=== PATIENT | male | born 1940 | race Caucasian/White ===

== ENCOUNTER 2016-12-25 14:21 | Outpatient (CLI) | payer MEDICARE, OTHER | END 2016-12-25 14:22 | disposition home or self-care (01) | DX: J43.9 Emphysema, unspecified (principal) ==

== ENCOUNTER 2016-12-28 08:54 | Outpatient (CLI) | payer MEDICARE, OTHER ==
[2016-12-28] MEDS ORDERED: ALBUTEROL NEB 2.5 MG/3 ML INH ONE (09:37)
== END 2016-12-28 08:55 | disposition home or self-care (01) ==
DX: J44.9 Chronic obstructive pulmonary disease, unspecified (principal); Z77.090 Contact with and (suspected) exposure to asbestos
CPT/HCPCS: 94060; J7613

== ENCOUNTER 2017-01-28 14:52 | Outpatient (CLI) | payer MEDICARE, OTHER | END 2017-01-28 14:53 | DX: J44.9 Chronic obstructive pulmonary disease, unspecified (principal) ==

== ENCOUNTER 2017-04-03 16:29 | Outpatient (CLI) | payer MEDICARE, OTHER | END 2017-04-03 16:30 | disposition home or self-care (01) | LOC: LAB.R 16:29 | PROVIDERS: ATTEND Internal Medicine | DX: M25.572 Pain in left ankle and joints of left foot (principal) | CPT/HCPCS: 84550 ==

== ENCOUNTER 2017-04-18 10:14 | Day surgery (SDC) | payer MEDICARE, OTHER ==
[2017-04-18] MEDS ORDERED: PHENYLEPHRINE 2.5% OPHTH 2 ML DROPS ONE (10:20)
[2017-04-18] MEDS ORDERED: PROPARACAINE 0.5% OPHTH DROPS 15 ML OPTH ONE ×2 (10:48→12:05)
[2017-04-18] MEDS ORDERED: CYCLOPENTOLATE 1% OPHTH DROPS 2 ML OPTH ONE (10:48)
[2017-04-18] MEDS ORDERED: KETOROLAC 0.45% OPHTH DROPS OPTH ONE (10:48)
[2017-04-18] MEDS ORDERED: PHENYLEPHRINE 2.5% OPHTH 2 ML DROPS OPTH ONE (10:48)
[2017-04-18] MEDS ORDERED: LACTATED RINGERS 500 ML IV ONE (10:58)
[2017-04-18] MEDS ORDERED: EPINEPHrine 1 MG/ML AMP IVP ONE (12:05)
[2017-04-18] MEDS ORDERED: TIMOLOL 0.5% OPHTH DROPS OPTH ONE (12:05)
[2017-04-18] MEDS ORDERED: CHONDR SULF/HYALURONATE SYRINGE IO ONE (12:05)
[2017-04-18] MEDS ORDERED: BRIMONIDINE 0.2% OPHTH DROPS 5 ML OPTH ONE (12:05)
[2017-04-18] MEDS ORDERED: TRIAMCIN/MOXIFLOX/VANCO 1 ML VIAL IO ONE ×2 (12:06)
[2017-04-18] MEDS ORDERED: BSS/LIDOCAINE/EPINEPHRINE 1 ML SYRINGE IO ONE ×2 (12:06)
[2017-04-18] MEDS ORDERED: MIDAZOLAM 2 MG/2 ML VIAL IVP ONE (12:10)
[2017-04-18 12:57] VITALS: BP 120/45
--- NOTE | 2017-04-18 14:28 | OPERATIVE REPORT ---
DATE OF SURGERY: 04/18/2017 00:00:00 PREOPERATIVE DIAGNOSIS: Visually significant cataract, right eye. This is his first cataract surgery. POSTOPERATIVE DIAGNOSIS: Visually significant cataract, right eye. This is his first cataract surgery. NAME OF PROCEDURE: Phacoemulsification with posterior chamber intraocular lens implant, right eye. SURGEON: Wili Treviño MD ANESTHESIA: Monitored anesthesia care. COMPLICATIONS: None. OPERATIVE INDICATIONS: This is a 76-year-old man with progressive vision loss in the right eye due to 2-3+ nuclear and 1+ cortical cataract. Best corrected visual acuity was 20/30 with glare to 20/50 in the right eye. Indications for surgery were overall decrease in vision, difficulty seeing words on the computer screen, difficulty reading, difficulty seeing words, closed captions or game scores on TV, difficulty driving in low light or at night, difficulty driving at night because of headlights from other vehicles, and difficulty with glare or bright lights in any situation. He was consented at length concerning the risks and benefits of cataract surgery after which he expressed a desire to proceed with surgery. OPERATIVE PROCEDURE: The patient was taken into OR #2 and placed under monitored anesthesia care. A surgical time-out was conducted confirming correct patient, correct procedure and correct surgical site. He was placed under the LenSx laser and his eye docked to the laser interface. The laser performed the capsulotomy, lens softening, phaco wounds, and arcuate keratotomy incisions. He was then moved to the operating microscope, given topical anesthesia, and then prepped and draped in the usual sterile fashion. The eye was entered at the 12 and 9 o'clock positions. Intracameral Shugarcaine was injected into the anterior chamber, followed by Viscoat. The capsulorrhexis flap created by the LenSx laser was removed from the anterior chamber. The nucleus was hydrodissected and phacoemulsified. The cortex was evacuated using automated infusion and aspiration. Provisc was injected into the capsular bag and a 22.5 diopter toric intraocular lens was inserted into the bag and rotated to axis 013. Approximately 0.8 mL of a mixture of triamcinolone, moxifloxacin, and vancomycin was injected subconjunctivally in the superior quadrant for inflammation and infection prophylaxis. I/A was used to evacuate the viscoelastic materials. The eye was inflated to physiologic pressure using balanced salt solution and found to be water tight. The eye was again checked to make sure that the toric markers were in the desired position of 013, as they were. The patient was taken from the operating room in good condition and given postoperative instructions. JOB #: [id number] EXT JOB #:[id number] MTDD
== END 2017-04-18 10:15 | disposition home or self-care (01) ==
LOC: SDS 10:14
PROVIDERS: ATTEND Ophthalmology
PROC: 08RJ3JZ Replacement of Right Lens with Synthetic Substitute, Percutaneous Approach (ICD-10-PCS; principal; 2017-04-18 10:30)
DX: H25.811 Combined forms of age-related cataract, right eye (principal); F17.210 Nicotine dependence, cigarettes, uncomplicated; J44.9 Chronic obstructive pulmonary disease, unspecified; I10 Essential (primary) hypertension; Z82.49 Family history of ischemic heart disease and other diseases of the circulatory system; Z82.61 Family history of arthritis; Z88.5 Allergy status to narcotic agent; Z96.653 Presence of artificial knee joint, bilateral; Z96.641 Presence of right artificial hip joint; Z96.612 Presence of left artificial shoulder joint; Z96.611 Presence of right artificial shoulder joint; Z79.82 Long term (current) use of aspirin
CPT/HCPCS: 66984; A9270; V2632

== ENCOUNTER 2017-07-24 08:00 | Outpatient (CLI) | payer MEDICARE, OTHER ==
[2017-07-24 19:56] LABS: ALBUMIN/GLOBULIN RATIO 1.5 (1.0-2.2); BILIRUBIN,TOTAL 0.5 mg/dL (0.2-1.0); CALCIUM 9.9 mg/dL (8.5-10.3); CREATININE 0.7 mg/dL (0.6-1.2); POTASSIUM 3.9 mmol/L (3.5-5.0); TOTAL PROTEIN 7.1 g/dL (6.7-8.2)
[2017-07-25 16:57] LABS: FERRITIN 69.4 ng/mL (23.9-336.2)
== END 2017-07-24 08:01 | disposition home or self-care (01) ==
LOC: LAB.R 08:00
PROVIDERS: ATTEND Nurse Practitioner Primary Care
DX: G47.62 Sleep related leg cramps (principal); E11.65 Type 2 diabetes mellitus with hyperglycemia
CPT/HCPCS: 80053; 82607; 82728

== ENCOUNTER 2017-09-28 13:25 | Outpatient (CLI) | payer MEDICARE, OTHER ==
[~2017-09-28 13:25] MED LIST: ALBUTEROL NEB 2.5 MG/3 ML INH ONE
--- NOTE | 2017-09-28 19:31 | XRAY Report ---
EXAM: CHEST RADIOGRAPHY EXAM DATE: 09/28/2017 02:03 PM. CLINICAL HISTORY: COPD. COMPARISON: 12/25/2016. TECHNIQUE: 2 views. FINDINGS: Lungs/Pleura: No focal opacities evident. No pleural effusion. No pneumothorax. Pulmonary hyperinflat ion redemonstrated.. Mediastinum: Heart and mediastinal contours are unremarkable. Other: Bilateral shoulder arthroplasties partially redemonstrated. IMPRESSION: 1. No acute abnormality. 2. Pulmonary hyperinflation, without change. [facility] Referring Provider Line: [phone] SITE ID: [id number]
== END 2017-09-28 13:26 | disposition home or self-care (01) ==
LOC: RT 13:25
PROVIDERS: ATTEND Internal Medicine
DX: J44.9 Chronic obstructive pulmonary disease, unspecified (principal)
CPT/HCPCS: 71020; 94010

== ENCOUNTER 2018-03-07 09:23 | Outpatient (CLI) | payer MEDICARE, OTHER ==
--- NOTE | 2018-03-07 12:02 | XRAY Report ---
TWO-VIEW CHEST: 03/07/2018 COMPARISON: Two view chest 09/28/2017. INDICATION: Fever. TECHNIQUE REPORT: Two views. FINDINGS: There is flattening of the diaphragms. There is mild stable bibasilar scar. No focal consolidation. No pneumothorax or pleural effusion. Mediastinum unremarkable. Bilateral shoulder prostheses are noted. IMPRESSION: COPD. NO EVIDENCE OF ACUTE THORACIC PROCESS. TD: 03/07/2018 12:01 [facility]
== END 2018-03-07 09:24 | disposition home or self-care (01) ==
LOC: DI 09:23
PROVIDERS: ATTEND Internal Medicine
DX: R50.9 Fever, unspecified (principal); J44.9 Chronic obstructive pulmonary disease, unspecified
CPT/HCPCS: 71046

== ENCOUNTER 2018-05-28 11:18 | Outpatient (CLI) | payer MEDICARE, OTHER ==
[2018-05-28 14:13] LABS: BILIRUBIN,URINE NEGATIVE (NEGATIVE); GLUCOSE, URINE (UA) NEGATIVE (NEGATIVE); KETONES,URINE (UA) NEGATIVE (NEGATIVE); LEUKOCYTE ESTERASE, URINE NEGATIVE (NEGATIVE); NITRITE,URINE NEGATIVE (NEGATIVE); OCCULT BLOOD,URINE NEGATIVE (NEGATIVE); PROTEIN,URINE NEGATIVE (NEGATIVE); UROBILINOGEN,URINE 0.2 (NORMAL) E.U./dL (NORMAL)
[2018-05-28 14:22] LABS: CLARITY,URINE CLEAR (CLEAR)
== END 2018-05-28 11:19 | disposition home or self-care (01) ==
LOC: LAB.R 11:18
PROVIDERS: ATTEND Nurse Practitioner Primary Care
DX: R35.0 Frequency of micturition (principal)
CPT/HCPCS: 81001; 81003; 84153; 87086

== ENCOUNTER 2018-09-17 09:11 | Outpatient (CLI) | payer MEDICARE, OTHER ==
[2018-09-17 09:36] LABS: BASOPHILS % (AUTO) 0.4 %; EOSINOPHILS # (AUTO) 0.2 10^3/uL (0.0-0.7); EOSINOPHILS % (AUTO) 2.7 %; HGB - HEMOGLOBIN 13.9 g/dL (14.0-18.0); LYMPHOCYTES # (AUTO) 1.5 10^3/uL (1.5-3.5); LYMPHOCYTES % (AUTO) 17.9 %; MEAN CORPUSCULAR HEMOGLOBIN 31.2 pg (27.0-31.0); MEAN CORPUSCULAR HGB CONC 34.1 g/dL (32.0-36.0); MEAN CORPUSCULAR VOLUME 91.4 fL (80.0-94.0); MEAN PLATELET VOLUME 7.1 fL (7.4-11.4); MONOCYTES % (AUTO) 11.7 %; NEUTROPHILS # (AUTO) 5.7 10^3/uL (1.5-6.6); NEUTROPHILS % (AUTO) 67.3 %; PLT - PLATELET COUNT 230 10^3/uL (130-450); RED BLOOD COUNT 4.47 10^6/uL (4.70-6.10); RED CELL DISTRIBUTION WIDTH 13.7 % (12.0-15.0); WHITE BLOOD COUNT 8.5 x10^3/uL (4.8-10.8)
[2018-09-17 09:51] LABS: ALBUMIN 4.1 g/dL (3.2-5.5); ALBUMIN/GLOBULIN RATIO 1.4 (1.0-2.2); BILIRUBIN,TOTAL 0.7 mg/dL (0.2-1.0); CALCIUM 9.3 mg/dL (8.5-10.3); CREATININE 0.9 mg/dL (0.6-1.2)
== END 2018-09-17 09:12 | disposition home or self-care (01) ==
LOC: LAB.R 09:11
PROVIDERS: ATTEND Internal Medicine
DX: K57.92 Diverticulitis of intestine, part unspecified, without perforation or abscess without bleeding (principal)
CPT/HCPCS: 80053; 85025

== ENCOUNTER 2018-09-17 09:41 | Outpatient (CLI) | payer MEDICARE, OTHER ==
[2018-09-17] MEDS ORDERED: IOVERSOL 320 100 ML VIAL IVP ONE ×2 (09:44→13:22)
[2018-09-17] MEDS ORDERED: IOVERSOL 320 50 ML VIAL ONE (09:44)
--- NOTE | 2018-09-17 12:15 | CT Report ---
Reason: DIVERTICULITIS Procedure Date: 09/17/2018 Accession Number: [id number] / [id number] Procedure: CT - Abdomen/Pelvis W/ CPT Code: FULL RESULT: EXAM: CT ABDOMEN AND PELVIS EXAM DATE: 09/17/2018 11:28 AM. CLINICAL HISTORY: DIVERTICULITIS. COMPARISONS: None. TECHNIQUE: Routine helical CT imaging was performed through the abdomen and pelvis. IV contrast: ISOVUE 300 100mL. Enteric contrast: Yes. Reconstructions: Coronal and sagittal. In accordance with CT protocol optimization, one or more of the following dose reduction techniques were utilized for this exam: automated exposure control, adjustment of mA and/or KV based on patient size, or use of iterative reconstructive technique. FINDINGS: Lung Bases: Linear changes are noted in the lung bases that most likely represent atelectasis or scarring. Solid organs: The liver is without evidence of an enhancing mass. There is a gallstone within the gallbladder. There is no evidence of intrahepatic biliary duct dilatation. The spleen, pancreas, and adrenal glands are normal in appearance. The kidneys are without evidence of a mass or hydronephrosis. Peritoneal Cavity/Bowel: Diverticuli are seen involving the descending and sigmoid colon. Fat stranding is noted adjacent to the descending colon. A lesion is seen along the descending colonic wall. It measures approximately 1.4 x 2.3 cm (image 49 of series 3). This may represent a mass or inflammatory changes. Pelvic Organs: No mass or cyst is seen within the pelvis. Vasculature: There is atherosclerosis of the aorta and its branches, including the coronary arteries. Bones: There are postoperative changes consistent with a right hip arthroplasty. There is scoliosis of the lumbar spine convex to the left. Other: None. IMPRESSION: Lesion of the descending colon that may represent inflammatory changes from diverticulitis or a primary colon cancer. Recommend nonemergent GI consult for further evaluation. Diverticulosis of the descending and sigmoid colon. Cholelithiasis without evidence of obstruction. Atherosclerosis of the aorta and its branches, including the coronary arteries. [facility]
[2018-09-17] MEDS ORDERED: IOVERSOL 320 50 ML VIAL PO ONE (13:22)
== END 2018-09-17 09:42 | disposition home or self-care (01) ==
LOC: DI 09:41
PROVIDERS: ATTEND Internal Medicine
DX: K57.92 Diverticulitis of intestine, part unspecified, without perforation or abscess without bleeding (principal); K57.30 Diverticulosis of large intestine without perforation or abscess without bleeding; K80.20 Calculus of gallbladder without cholecystitis without obstruction; I70.0 Atherosclerosis of aorta; I25.10 Atherosclerotic heart disease of native coronary artery without angina pectoris
CPT/HCPCS: 74177; Q9967

== ENCOUNTER 2018-11-01 17:25 | Outpatient (CLI) | payer MEDICARE, OTHER | END 2018-11-01 17:26 | disposition critical access hospital (66) | LOC: EMS 17:25 | PROVIDERS: ATTEND Surgery | DX: R06.02 Shortness of breath (principal) | CPT/HCPCS: A0425; A0427 ==

== ENCOUNTER 2018-11-01 17:38 | Observation (INO) | payer MEDICARE, OTHER ==
[2018-11-01 18:00] LABS: BASOPHILS # (AUTO) 0.1 10^3/uL (0.0-0.1); BASOPHILS % (AUTO) 0.8 %; EOSINOPHILS # (AUTO) 0.4 10^3/uL (0.0-0.7); EOSINOPHILS % (AUTO) 5.8 %; HGB - HEMOGLOBIN 14.7 g/dL (14.0-18.0); LYMPHOCYTES # (AUTO) 1.5 10^3/uL (1.5-3.5); LYMPHOCYTES % (AUTO) 19.8 %; MEAN CORPUSCULAR HEMOGLOBIN 30.9 pg (27.0-31.0); MEAN CORPUSCULAR HGB CONC 33.4 g/dL (32.0-36.0); MEAN CORPUSCULAR VOLUME 92.5 fL (80.0-94.0); MEAN PLATELET VOLUME 7.4 fL (7.4-11.4); MONOCYTES # (AUTO) 0.9 10^3/uL (0.0-1.0); MONOCYTES % (AUTO) 11.6 %; NEUTROPHILS # (AUTO) 4.7 10^3/uL (1.5-6.6); PLT - PLATELET COUNT 232 10^3/uL (130-450); RED BLOOD COUNT 4.75 10^6/uL (4.70-6.10); RED CELL DISTRIBUTION WIDTH 13.6 % (12.0-15.0); WHITE BLOOD COUNT 7.6 x10^3/uL (4.8-10.8)
[2018-11-01] MEDS ORDERED: methylPREDNISolone SUCCINATE 125 MG/2 ML VIAL IVP STA (18:04)
[2018-11-01] MEDS ORDERED: IPRATROPIUM/ALBUTEROL 3 ML NEB INH STA (18:04)
--- NOTE | 2018-11-01 18:06 | ED Physician Documentation ---
PD HPI DYSPNEA - Stated complaint Stated Complaint: SOA - Chief complaint Chief Complaint: Resp - History obtained from History obtained from: Patient - History of Present Illness Timing - onset: Other (77-year-old gentleman with severe COPD quit smoking 3 months ago. For the last 4 days he has had shortness of breath especially on exertion without chest pain or pedal edema. No significant cough. His albuterol has been unhelpful.) Review of Systems Unable to obtain: Uncooperative Constitutional: denies: Fever, Chills Cardiac: denies: Chest pain / pressure, Palpitations, Pedal edema, Calf pain Respiratory: reports: Dyspnea. denies: Cough, Hemoptysis, Wheezing PD PAST MEDICAL HISTORY - Past Medical History Past Medical History: Yes Cardiovascular: Hypertension Respiratory: COPD, Emphysema Endocrine/Autoimmune: None GI: None : Frequency HEENT: Chronic hearing loss, Other Psych: None Musculoskeletal: Gout Derm: None - Past Surgical History Past Surgical History: Yes Ortho: Hip replacement, Knee replacement, Shoulder arthroplasty - Present Medications Home Medications: Ambulatory Orders Medication Instructions Recorded Confirmed Albuterol 1 inh INH Q4HR PRN 04/18/17 04/18/17 Aspirin [Adult Low Dose Aspirin EC] 1 tab PO DAILY 04/18/17 04/18/17 Budesonide/Formoterol Fumarate 2 puffs INH BID 04/18/17 04/18/17 [Symbicort 160-4.5 Mcg Inhaler] LORazepam [Lorazepam] 1 tab PO DAILY PRN 04/18/17 04/18/17 Lisinopril 1 tab PO DAILY 04/18/17 04/18/17 Multivitamin [Multivitamins] 1 tab PO DAILY 04/18/17 04/18/17 PARoxetine HCl [Paroxetine HCl] 1 tab PO DAILY 04/18/17 04/18/17 Pravastatin Sodium 1 tab PO DAILY 04/18/17 04/18/17 Sildenafil Citrate [Viagra] 0.5 tab PO DAILY 04/18/17 04/18/17 Tamsulosin HCl [Flomax] 1 tab PO DAILY 04/18/17 04/18/17 Tiopronin 18 mcg INH BID 04/18/17 04/18/17 diltiaZEM [Cardizem] 240 mg PO DAILY 04/18/17 04/18/17 - Allergies Allergies/Adverse Reactions: Allergies Allergy/AdvReac Type Severity Reaction Status Date / Time oxycodone [Oxycodone] Allergy Intermediate Respiratory Verified 11/01/18 17:44 - Social History Does the pt smoke?: No Smoking Status: Never smoker Does the pt drink ETOH?: No Does the pt have substance abuse?: No - Immunizations Immunizations are current?: Yes PD ED PE NORMAL - Vitals Vital signs reviewed: Yes - General General: Alert and oriented X 3, Other (Labored pursed lipped breathing but speaking in full albeit short sentences.) - HEENT HEENT: PERRL, EOMI - Neck Neck: Supple, no meningeal sign, No bony TTP - Cardiac Cardiac: RRR, No murmur - Respiratory Respiratory: Other (Mild respiratory distress, tight and wheezy throughout) - Abdomen Abdomen: Soft, Non tender - Back Back: No CVA TTP, No spinal TTP - Extremities Extremities: No edema, No calf tenderness / cord - Neuro Neuro: Alert and oriented X 3, Normal speech - Psych Psych: Normal mood, Normal affect Results - Vitals Vitals: Vital Signs - 24 hr 11/01/18 11/01/18 11/01/18 17:41 18:10 19:08 Temperature 36.3 C L Heart Rate 118 H 108 H 106 H Respiratory 32 H 23 22 Rate Blood Pressure 175/96 H O2 Saturation 95 Oxygen O2 Source Room air - EKG (time done) 1757 Rate: Rate (enter#) (113) Rhythm: Sinus tachycardia, LAE [place]: Normal QRS: Normal Ischemia: Normal ST segments Computer interpretation: Agree with computer - Labs Labs: Laboratory Tests 11/01/18 11/01/18 11/01/18 17:50 17:50 17:50 WBC 7.6 RBC 4.75 Hgb 14.7 Hct 43.9 MCV 92.5 MCH 30.9 MCHC 33.4 RDW 13.6 Plt Count 232 MPV 7.4 Neut # (Auto) 4.7 Lymph # (Auto) 1.5 [place] # (Auto) 0.9 Eos # (Auto) 0.4 Baso # (Auto) 0.1 Absolute Nucleated RBC 0.01 Nucleated RBC % 0.1 PT 11.4 INR 1.0 Sodium 138 Potassium 4.0 Chloride 101 Carbon Dioxide 26 Anion Gap 11.0 BUN 17 Creatinine 0.9 Estimated GFR (MDRD) 82 L Glucose 128 H Calcium 9.2 Total Bilirubin 0.4 AST 29 ALT 18 Alkaline Phosphatase 82 Troponin I Total Protein 7.8 Albumin 4.3 Globulin 3.5 Albumin/Globulin Ratio 1.2 Lipase 33 11/01/18 17:50 WBC RBC Hgb Hct MCV MCH MCHC RDW Plt Count MPV Neut # (Auto) Lymph # (Auto) [place] # (Auto) Eos # (Auto) Baso # (Auto) Absolute Nucleated RBC Nucleated RBC % PT INR Sodium Potassium Chloride Carbon Dioxide Anion Gap BUN Creatinine Estimated GFR (MDRD) Glucose Calcium Total Bilirubin AST ALT Alkaline Phosphatase Troponin I < 0.04 Total Protein Albumin Globulin Albumin/Globulin Ratio Lipase - Rads (name of study) 1v chest Radiology: EMP read contemporaneously (NAD) PD MEDICAL DECISION MAKING - ED course ED course: 77-year-old gentleman with COPD presents sick with exacerbation of same. He was administered nebs in the department with some improvement but still tachypneic and labored. Also remained tachycardic. Spoke with Dr. Kennedy for admission at 7:15 PM. Departure - Departure Disposition: ED Place in Observation Clinical Impression: Severe chronic obstructive pulmonary disease Condition: Serious
[2018-11-01 18:13] LABS: PT - PROTHROMBIN TIME 11.4 secs (9.9-12.6)
[2018-11-01 18:15] LABS: ALBUMIN 4.3 g/dL (3.2-5.5); ALBUMIN/GLOBULIN RATIO 1.2 (1.0-2.2); BILIRUBIN,TOTAL 0.4 mg/dL (0.2-1.0); CALCIUM 9.2 mg/dL (8.5-10.3); CREATININE 0.9 mg/dL (0.6-1.2); TOTAL PROTEIN 7.8 g/dL (6.7-8.2)
--- NOTE | 2018-11-01 18:26 | XRAY Report ---
Reason: dyspnea Procedure Date: 11/01/2018 Accession Number: [id number] / [id number] Procedure: XR - Chest 1 View X-Ray CPT Code: 40211 FULL RESULT: EXAM: CHEST RADIOGRAPHY EXAM DATE: 11/01/2018 06:08 PM. CLINICAL HISTORY: Dyspnea. COMPARISON: CHEST 2 VIEW 03/07/2018 9:26 AM. TECHNIQUE: 1 view. FINDINGS: Heart size is normal. Calcified plaques in the thoracic aorta. No consolidation, pleural effusion, or pneumothorax. Diffuse prominence of the pulmonary interstitium, which may be related to chronic lung disease. Bilateral shoulder arthroplasties partially visualized. IMPRESSION: No acute cardiopulmonary findings. [facility]
[2018-11-01] MEDS ORDERED: ALBUTEROL NEB 2.5 MG/3 ML INH STA (18:32)
[2018-11-01] MEDS ORDERED: cefTRIAXone 1 GM in SODIUM CHLORIDE 0.9% MINIBAG 100 ML IV STA (19:14)
[2018-11-01] MEDS ORDERED: AZITHROMYCIN INJ 500 MG in SODIUM CHLORIDE 0.9% 250 ML IV STA (19:14)
[2018-11-01] MEDS ORDERED: LEVALBUTEROL 1.25 MG/3 ML NEB INH STA (19:30)
[2018-11-01] MEDS ORDERED: LORAZEPAM PO PRN (19:33)
[2018-11-01] MEDS ORDERED: hydrALAZINE INJ 20 MG/ML VIAL IVP PRN (19:35)
[2018-11-01] MEDS ORDERED: ZOLPIDEM 5 MG TABLET PO PRN (19:37)
[2018-11-01] MEDS ORDERED: ACETAMINOPHEN 325 MG TABLET PO PRN (19:37)
[2018-11-01] MEDS ORDERED: MONTELUKAST 10 MG TABLET PO SCH (21:00)
[2018-11-01] MEDS ORDERED: FAMOTIDINE 20 MG TABLET PO SCH (21:00)
[2018-11-01] MEDS: methylPREDNISolone SUCCINATE 40 MG/ML VIAL IVP SCH (21:29)
[2018-11-01] MEDS: SODIUM CHLORIDE FLUSH 0.9% 10 ML SYRINGE IVP SCH (21:30)
[2018-11-01] MEDS: IPRATROPIUM/ALBUTEROL 3 ML NEB INH SCH (22:13)
[2018-11-01] MEDS: SODIUM CHLORIDE FLUSH 0.9% 10 ML SYRINGE IVP PRN (23:45)
--- NOTE | 2018-11-01 23:45 | HISTORY & PHYSICAL EXAMINATION ---
Chief Complaint - Chief Complaint Chief Complaint: SOB with wheezing History of Present Illness - Admitted From Admitted From:: ED - History Obtained From Records Reviewed: yes History obtained from: patient Exam Limitations: none - History of Present Illness HPI Comment/Other: 77-year-old gentleman with severe COPD quit smoking 3 months ago. For the last 4 days he has had shortness of breath especially on exertion without chest pain or pedal edema. No significant cough. His albuterol has been unhelpful. On exam patient was tachypneic at 32 RR, tachycardic, was having faint bibasilar wheezing. BP elevated 175/96, ECG ST at 113 bpm, labs wnl, trop x 1 neg, 95% RA, patient wanted to go home. History - Past Medical History Cardiovascular: reports: Hypertension Respiratory: reports: COPD, Emphysema Endocrine/Autoimmune: reports: None GI: reports: None : reports: Frequency HEENT: reports: Chronic hearing loss, Other Psych: reports: None Musculoskeletal: reports: Gout Derm: reports: None MRSA Hx?: No - Past Surgical History Ortho: reports: Hip replacement, Knee replacement, Shoulder arthroplasty Meds/Allgy - Home Medications Home Medications: Ambulatory Orders Medication Instructions Recorded Confirmed Albuterol 1 puffs INH Q4HR PRN 04/18/17 11/02/18 Aspirin [Adult Low Dose Aspirin EC] 81 mg PO DAILY 04/18/17 11/02/18 Budesonide/Formoterol Fumarate 2 puffs INH BID 04/18/17 11/01/18 [Symbicort 160-4.5 Mcg Inhaler] LORazepam [Lorazepam] 1 mg PO DAILY PRN 04/18/17 11/02/18 Lisinopril 20 mg PO DAILY 04/18/17 11/02/18 Pravastatin Sodium 80 mg PO DAILY 04/18/17 11/02/18 Tamsulosin HCl [Flomax] 0.4 mg PO DAILY 04/18/17 11/02/18 Finasteride [Proscar] 5 mg PO DAILY 11/01/18 11/02/18 Magnesium 250 mg PO DAILY PM 11/01/18 11/01/18 Tiotropium [place] [Spiriva] 1 puffs INH DAILY 11/01/18 11/02/18 - Allergies Allergies/Adverse Reactions: Allergies Allergy/AdvReac Type Severity Reaction Status Date / Time oxycodone [Oxycodone] Allergy Intermediate Respiratory Verified 11/01/18 17:44 Review of Systems - Constitutional Constitutional: denies: Fatigue, Fever - Eyes Eyes: denies: Vision loss - Ears, Nose & Throat Ears, Nose & Throat: denies: Tinnitus, Vertigo - Cardiovascular Cariovascular: denies: Irregular heart rate, Palpitations, Chest pain, Edema - Respiratory Respiratory: reports: Wheezing, SOB at rest, SOB with exertion. denies: Cough, Sputum production - Gastrointestinal Gastrointestinal: denies: Abdominal pain, Abdominal distention, Diarrhea - Genitourinary Genitourinary: denies: Dysuria, Frequency, Urgency - Musculoskeletal Musculoskeletal: denies: Muscle pain, Back pain, Muscle aches - Integumentary Integumentary: denies: Rash, Pruritis, Lesions - Neurological Neurological: denies: General weakness, Focal weakness, Headache, Memory problems - Psychiatric Psychiatric: denies: Depression, Anxiety, Hallucinations - Endocrine Endocrine: denies: Polyuria, Polydypsia - Hematologic/Lymphatic Hematologic/Lymphatic: denies: Anemia, Bruising, Blood clots, Lymphadenopathy - All Other Systems All Other Systems: reports: Reviewed and negative Prior Level of Functionality: Patient is ambulatory Exam - Vital Signs Vital Signs: Vital Signs x48h Temp Pulse Pulse Resp BP BP Pulse Ox 11/01/18 22:10 110 H 24 11/01/18 20:00 36.6 C 114 H 24 167/97 H 94 11/01/18 19:58 100 22 11/01/18 19:52 36.9 C 99 28 H 146/82 H 93 11/01/18 19:08 106 H 22 11/01/18 18:10 108 H 23 11/01/18 17:41 36.3 C L 118 H 32 H 175/96 H 95 - Physical Exam General Appearance: positive: Mild distress Eyes Bilateral: positive: Normal inspection, PERRL, EOMI ENT: positive: ENT inspection nml, Pharynx nml, No signs of dehydration Neck: positive: Nml inspection, Thyroid nml, No JVD, Trachea midline. negative: Thyromegaly Respiratory: positive: Chest non-tender, Wheezes (faint), Rhonchi Cardiovascular: positive: Regular rate & rhythm, No murmur. negative: Irregularly irregular Abdomen: positive: Non-tender, No organomegaly, No distention Back: positive: Nml inspection Skin: positive: Color nml, No rash, Warm Extremities: positive: Nml appearance Neurologic/Psychiatric: positive: Oriented x3, CN's nml (2-12) Conclusion/Plan - Problem List (1) COPD with emphysema Conclusion/Plan: Would initiate IV steroids, nebs, pulmicort, pulm toilet, spirometry, IV abx with rocephin/azithro, duonebs, o2 tx. Resp viral panel, strept neg/mycoplasma IgM Qualifiers: Emphysema type: unspecified Qualified Code(s): J43.9 - Emphysema, unspecified (2) HTN (hypertension), malignant Conclusion/Plan: restart home meds (3) Advance care planning Conclusion/Plan: Patient is a DNR and was adamant on not wanting aggressive medical care. Goals of care, symptoms mgmt, and disease trajectory were discussed. - Lab Results Lab results reviewed: Yes Fish Bones: 11/01/18 17:50 11/01/18 17:50 - Diagnostic Imaging Results Diagnostic Imaging Results: positive: Final report reviewed - EKG Results EKG Interpreted Independently: Yes Core Measures - Anticipated LOS I expect patient to be DC'd or transferred within 96 hours.: Yes - DVT/VTE - Prophylaxis VTE/DVT Device ordered at admit?: No Not Ordered - Medical Reason: Not indicated VTE/DVT Prophylaxis med ordered at admit?: Yes - Stroke - Rehab Assessment Rehab services assessment to be ordered?: No - AMI - Statin at Admit Aspirin Prescribed on Admit: Yes
[2018-11-02] MEDS: SODIUM CHLORIDE FLUSH 0.9% 10 ML SYRINGE IVP SCH (01:21)
[2018-11-02] MEDS ORDERED: AZITHROMYCIN INJ 500 MG in SODIUM CHLORIDE 0.9% 250 ML IV SCH ×2 (01:30→20:00)
[2018-11-02] MEDS ORDERED: cefTRIAXone 1 GM in SODIUM CHLORIDE 0.9% MINIBAG 100 ML IV SCH ×2 (01:30→19:30)
[2018-11-02] MEDS: SODIUM CHLORIDE FLUSH 0.9% 10 ML SYRINGE IVP PRN (07:00)
[2018-11-02] MEDS ORDERED: BUDESONIDE 0.5 MG/2 ML NEB INH SCH (07:00)
[2018-11-02] MEDS: methylPREDNISolone SUCCINATE 40 MG/ML VIAL IVP SCH (07:01)
[2018-11-02] MEDS: IPRATROPIUM/ALBUTEROL 3 ML NEB INH SCH (07:06)
[2018-11-02 07:51] VITALS: BP 134/93
[2018-11-02] MEDS ORDERED: POLYETHYLENE GLYCOL 3350 17 GM PACKET PO SCH (09:00)
[2018-11-02] MEDS ORDERED: diltiaZEM CD 240 MG CAPSULE PO SCH (09:00)
[2018-11-02] MEDS ORDERED: TIOTROPIUM BROMIDE INH SCH (09:00)
[2018-11-02] MEDS ORDERED: PAROXETINE HCL PO SCH (09:00)
[2018-11-02] MEDS ORDERED: ENOXAPARIN 40 MG/0.4 ML SYRINGE SUBQ SCH (09:00)
[2018-11-02] MEDS ORDERED: PRAVASTATIN SODIUM PO SCH (09:00)
[2018-11-02] MEDS ORDERED: MULTIVITAMIN TABLET PO SCH (09:00)
[2018-11-02] MEDS ORDERED: ASPIRIN EC 81 MG TABLET PO SCH (09:00)
[2018-11-02] MEDS ORDERED: FINASTERIDE 5 MG TABLET PO SCH (09:00)
[2018-11-02] MEDS ORDERED: LISINOPRIL 20 MG TABLET PO SCH (09:00)
[2018-11-02] MEDS ORDERED: TAMSULOSIN 0.4 MG CAPSULE PO SCH (09:00)
[2018-11-02] MEDS ORDERED: ASPIRIN CHEW 81 MG TABLET PO SCH (09:00)
--- NOTE | 2018-11-02 11:47 | DISCHARGE SUMMARY ---
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 HTN (hypertension), malignant (I10) chronic, stable. SOB (shortness of breath) (R06.02) ongoing, would not stay to evaluate for home oxygen, refused home oxygen if he were to qualify. Advanced care planning/counseling discussion (Z71.89) discussion with admitting provider, DNR. BPH (benign prostatic hyperplasia) (N40.0) chronic, continue meds. Hyperlipidemia (E78.5) chronic, continue meds. Medical non-compliance (Z91.19) chronic, patient left AMA. - HPI History of Present Illness: Jamin Beyer is a 77-year-old male with severe COPD and quit smoking 3 months ago. For the last 4 days he has had shortness of breath especially on exertion without chest pain or pedal edema. No significant cough. His albuterol has been unhelpful. On exam patient was tachypneic at 32 RR, tachycardic, was having faint bibasilar wheezing. BP elevated 175/96, ECG ST at 113 bpm, labs wnl, trop x 1 neg, 95% RA, patient wanted to go home. - HOSPITAL COURSE Hospital Course: The patient was reluctant to continue treatment for his COPD exacerbation and around 0700AM became more agitated and insisted on leaving against medical advice. He was profoundly TELIDA and refused any further treatment. He was told about ongoing treatment and the importance of tapering steroids and antibiotics that should continue, but still refused treatment. He was compliant in signing the appropriate AMA forms. He was taken to the lobby of the front entrance and called a cab to return home. - ALLERGIES Allergies/Adverse Reactions: Allergies Allergy/AdvReac Type Severity Reaction Status Date / Time oxycodone [Oxycodone] Allergy Intermediate Respiratory Verified 11/01/18 17:44 - MEDICATIONS Home Medications: Ambulatory Orders Medication Instructions Recorded Confirmed Albuterol 1 puffs INH Q4HR PRN 04/18/17 11/02/18 Aspirin [Adult Low Dose Aspirin EC] 81 mg PO DAILY 04/18/17 11/02/18 Budesonide/Formoterol Fumarate 2 puffs INH BID 04/18/17 11/01/18 [Symbicort 160-4.5 Mcg Inhaler] LORazepam [Lorazepam] 1 mg PO DAILY PRN 04/18/17 11/02/18 Lisinopril 20 mg PO DAILY 04/18/17 11/02/18 Pravastatin Sodium 80 mg PO DAILY 04/18/17 11/02/18 Tamsulosin HCl [Flomax] 0.4 mg PO DAILY 04/18/17 11/02/18 Finasteride [Proscar] 5 mg PO DAILY 11/01/18 11/02/18 Magnesium 250 mg PO DAILY PM 11/01/18 11/01/18 Tiotropium [place] [Spiriva] 1 puffs INH DAILY 11/01/18 11/02/18 - PHYSICAL EXAM AT DISCHARGE General Appearance: positive: Alert, Moderate distress, Anxious Eyes Bilateral: positive: PERRL ENT: positive: No signs of dehydration Neck: positive: No JVD Respiratory: positive: Wheezes, Rhonchi Cardiovascular: positive: Tachycardia, Systolic murmur Peripheral Pulses: positive: 2+ Abdomen: positive: Non-tender, Nml bowel sounds Back: positive: Nml inspection Skin: positive: No rash, Warm, Dry Extremities: positive: Non-tender, Pedal edema Neurologic/Psychiatric: positive: Oriented x3, CN's nml (2-12), Motor nml, Sensation nml, Depressed mood/affect, Other (agitation apparent) Reflexes: Bicep (R): 3+, Bicep (L): 3+ - LABS Result Diagrams: 11/01/18 17:50 11/01/18 17:50 - FOLLOW UP Follow Up: Follow up with PCP, or seek medical attention if needed. - TIME SPENT Time Spent in Discharge (Minutes): 45
[2018-11-05 16:01] LABS: MYCOPLASMA PNEUMONIAE IGG 2.04
== END 2018-11-02 07:55 | disposition left against medical advice (07) ==
LOC: EDUNIT# → ED 17:38 → MS2 19:37
PROVIDERS: ADMIT Family Medicine; ATTEND Nurse Practitioner
DX: J43.9 Emphysema, unspecified (principal); I10 Essential (primary) hypertension; N40.0 Benign prostatic hyperplasia without lower urinary tract symptoms; E78.5 Hyperlipidemia, unspecified; Z53.20 Procedure and treatment not carried out because of patient's decision for unspecified reasons; Z66 Do not resuscitate; Z91.19 Patient's noncompliance with other medical treatment and regimen; Z87.891 Personal history of nicotine dependence; Z71.89 Other specified counseling
CPT/HCPCS: 36415; 71045; 80053; 83690; 84484; 85025; 85610; 86738; 87070; 87205; 87430; 93005; 94640; 96365; 96367; 96375; 96376; 99284; A9270; G0378; J7626; 96374; 99283

== ENCOUNTER 2019-05-19 09:16 | Emergency (ER) | payer MEDICARE, OTHER ==
--- NOTE | 2019-05-19 09:29 | ED Physician Documentation ---
History of Present Illness - Stated complaint Stated Complaint: SOA - History obtained from History obtained from: Patient - History of Present Illness Timing: How many days ago (several) Pain level max: 0 Pain level now: 0 Improved by: rest Worsened by: exertion - Additonal information Additional information: states increased work of breathing over the past few days. no fevers. no chills. + cough, yellow sputum. no chest pain. no palpitations. Review of Systems Ten Systems: 10 systems reviewed and negative Constitutional: denies: Fever, Chills Throat: denies: Sore throat Cardiac: denies: Chest pain / pressure Respiratory: reports: Dyspnea, Cough, Wheezing GI: denies: Nausea, Vomiting, Diarrhea Skin: denies: Rash Musculoskeletal: denies: Neck pain, Back pain Neurologic: denies: Headache PD PAST MEDICAL HISTORY - Past Medical History Past Medical History: Yes Cardiovascular: Hypertension Respiratory: COPD, Emphysema Endocrine/Autoimmune: None GI: None : Frequency HEENT: Chronic hearing loss, Other Psych: None Musculoskeletal: Gout Derm: None - Past Surgical History Past Surgical History: Yes Ortho: Hip replacement, Knee replacement, Shoulder arthroplasty - Present Medications Home Medications: Ambulatory Orders Medication Instructions Recorded Confirmed Albuterol 1 puffs INH Q4HR PRN 04/18/17 11/02/18 Aspirin [Adult Low Dose Aspirin EC] 81 mg PO DAILY 04/18/17 11/02/18 Budesonide/Formoterol Fumarate 2 puffs INH BID 04/18/17 11/01/18 [Symbicort 160-4.5 Mcg Inhaler] LORazepam [Lorazepam] 1 mg PO DAILY PRN 04/18/17 11/02/18 Lisinopril 20 mg PO DAILY 04/18/17 11/02/18 Pravastatin Sodium 80 mg PO DAILY 04/18/17 11/02/18 Tamsulosin HCl [Flomax] 0.4 mg PO DAILY 04/18/17 11/02/18 Finasteride [Proscar] 5 mg PO DAILY 11/01/18 11/02/18 Magnesium 250 mg PO DAILY PM 11/01/18 11/01/18 Tiotropium [place] [Spiriva] 1 puffs INH DAILY 11/01/18 11/02/18 Benzonatate [Tessalon Perle] 100 - 200 mg PO TID PRN #30 capsule 05/19/19 predniSONE [Deltasone] 10 mg PO [id number] #42 tab 05/19/19 - Allergies Allergies/Adverse Reactions: Allergies Allergy/AdvReac Type Severity Reaction Status Date / Time oxycodone [Oxycodone] Allergy Intermediate Respiratory Verified 11/01/18 17:44 - Social History Does the pt smoke?: No Smoking Status: Former smoker Does the pt drink ETOH?: No Does the pt have substance abuse?: No - Immunizations Immunizations are current?: Yes PD ED PE NORMAL - Vitals Vital signs reviewed: Yes - General General: Alert and oriented X 3, No acute distress, Well developed/nourished - HEENT HEENT: PERRL, Moist mucous membranes - Neck Neck: Supple, no meningeal sign - Cardiac Cardiac: RRR, Strong equal pulses - Respiratory Respiratory: No respiratory distress, Other (wheezing B) - Abdomen Abdomen: Soft, Non tender, Non distended - Derm Derm: Warm and dry - Extremities Extremities: No edema - Neuro Neuro: Alert and oriented X 3 - Psych Psych: Normal mood, Normal affect Results - Vitals Vitals: Vital Signs - 24 hr 05/19/19 05/19/19 05/19/19 09:52 11:25 11:47 Temperature 36.3 C L Heart Rate 94 84 85 Respiratory 25 H 20 21 Rate Blood Pressure 171/83 H 161/82 H O2 Saturation 98 99 Oxygen O2 Source Room air - EKG (time done) 0924 Rate: Rate (enter#) (93) Rhythm: NSR [place]: Normal Intervals: Normal NV QRS: Normal Ischemia: Normal ST segments - Labs Labs: Laboratory Tests 05/19/19 05/19/19 09:42 09:42 WBC 7.4 RBC 5.04 Hgb 15.5 Hct 47.3 MCV 93.8 MCH 30.8 MCHC 32.8 RDW 13.2 Plt Count 252 MPV 9.2 Neut # (Auto) 5.3 Lymph # (Auto) 1.2 L [place] # (Auto) 0.7 Eos # (Auto) 0.2 Baso # (Auto) 0.0 Absolute Nucleated RBC 0.00 Nucleated RBC % 0.0 Sodium 141 Potassium 4.1 Chloride 101 Carbon Dioxide 26 Anion Gap 14.0 H BUN 21 H Creatinine 0.9 Estimated GFR (MDRD) 82 L Glucose 109 H Calcium 9.6 Total Bilirubin 1.2 H AST 24 ALT 19 Alkaline Phosphatase 55 Total Protein 7.5 Albumin 4.5 Globulin 3.0 Albumin/Globulin Ratio 1.5 Lipase 58 H - Rads (name of study) cxr Radiology: Prelim report reviewed, EMP read contemporaneously, See rad report (No acute disease or interval change. ) PD MEDICAL DECISION MAKING - ED course Complexity details: reviewed results, re-evaluated patient, considered differential, d/w patient ED course: 78-year-old male presents to the emergency department with a COPD flare. Will place on steroids. No hypoxia. Feels better after steroids and nebulizer treatment. He is well-appearing, nontoxic. Afebrile. No indication for antibiotics at this time. Patient counseled regarding signs and symptoms for which I believe and urgent re-evaluation would be necessary. Patient with good understanding of and agreement to plan and is comfortable going home at this time This document was made in part using voice recognition software. While efforts are made to proofread this document, sound alike and grammatical errors may occur. Departure - Departure Disposition: 01 Home, Self Care Clinical Impression: COPD with emphysema Qualifiers: Emphysema type: unspecified Qualified Code(s): J43.9 - Emphysema, unspecified Condition: Good Instructions: ED COPD Flare Follow-Up: Juve Delgado MD [Primary Care Provider] - Within 1 week Prescriptions: Benzonatate [Tessalon Perle] 100 - 200 mg PO TID PRN #30 capsule PRN Reason: Cough predniSONE [Deltasone] 10 mg PO [id number] #42 tab Comments: Use the steroids as prescribed. Return if you worsen. There is no pneumonia on your chest x-ray today. Follow-up with your doctor for further care. Discharge Date/Time: 05/19/19 12:04
[2019-05-19] MEDS ORDERED: predniSONE 20 MG TABLET PO STA (09:40)
[2019-05-19 10:12] LABS: BASOPHILS % (AUTO) 0.5 %; EOSINOPHILS # (AUTO) 0.2 10^3/uL (0.0-0.7); EOSINOPHILS % (AUTO) 2.7 %; HGB - HEMOGLOBIN 15.5 g/dL (14.0-18.0); LYMPHOCYTES # (AUTO) 1.2 10^3/uL (1.5-3.5); LYMPHOCYTES % (AUTO) 15.9 %; MEAN CORPUSCULAR HEMOGLOBIN 30.8 pg (27.0-31.0); MEAN CORPUSCULAR HGB CONC 32.8 g/dL (32.0-36.0); MEAN CORPUSCULAR VOLUME 93.8 fL (80.0-94.0); MEAN PLATELET VOLUME 9.2 fL (7.4-11.4); MONOCYTES # (AUTO) 0.7 10^3/uL (0.0-1.0); MONOCYTES % (AUTO) 9.8 %; NEUTROPHILS # (AUTO) 5.3 10^3/uL (1.5-6.6); NEUTROPHILS % (AUTO) 70.6 %; PLT - PLATELET COUNT 252 10^3/uL (130-450); RED BLOOD COUNT 5.04 10^6/uL (4.70-6.10); RED CELL DISTRIBUTION WIDTH 13.2 % (12.0-15.0); WHITE BLOOD COUNT 7.4 x10^3/uL (4.8-10.8)
[2019-05-19] MEDS ORDERED: IPRATROPIUM/ALBUTEROL 3 ML NEB INH STA (10:28)
[2019-05-19 10:31] LABS: ALBUMIN 4.5 g/dL (3.2-5.5); ALBUMIN/GLOBULIN RATIO 1.5 (1.0-2.2); BILIRUBIN,TOTAL 1.2 mg/dL (0.2-1.0); CALCIUM 9.6 mg/dL (8.5-10.3); CREATININE 0.9 mg/dL (0.6-1.2); TOTAL PROTEIN 7.5 g/dL (6.7-8.2)
--- NOTE | 2019-05-19 10:35 | XRAY Report ---
Reason: dyspnea Procedure Date: 05/19/2019 Accession Number: [id number] / [id number] Procedure: XR - Chest 1 View X-Ray CPT Code: 75688 FULL RESULT: EXAM: CHEST RADIOGRAPHY EXAM DATE: 05/19/2019 10:16 AM. CLINICAL HISTORY: Dyspnea. COMPARISON: CHEST 1 VIEW 11/01/2018 5:58 PM. TECHNIQUE: 1 view. FINDINGS: Lungs/Pleura: No focal opacities evident. No pleural effusion. No pneumothorax. Mediastinum: Within exam limitations, the cardiomediastinal contour is normal. Other: Bilateral shoulder hemiarthroplasties are partially visualized as before. IMPRESSION: No acute disease or interval change. RADIA
[2019-05-19 11:47] VITALS: BP 161/82
== END 2019-05-19 12:04 | disposition home or self-care (01) ==
LOC: ED 09:16
DX: J43.9 Emphysema, unspecified (principal); I10 Essential (primary) hypertension; Z87.891 Personal history of nicotine dependence
CPT/HCPCS: 36415; 71045; 80053; 83690; 85025; 93005; 94640; 99284; J7512

== ENCOUNTER 2019-05-20 08:49 | Outpatient (CLI) | payer MEDICARE, OTHER | END 2019-05-20 08:50 | disposition EMS.NT | LOC: EMS 08:49 | PROVIDERS: ATTEND Surgery | DX: R06.00 Dyspnea, unspecified (principal) ==

== ENCOUNTER 2020-01-25 16:25 | Outpatient (CLI) | payer MEDICARE, OTHER ==
--- NOTE | 2020-01-26 03:15 | XRAY Report ---
Reason: L SHOULDER PX, CERVICALGIA Procedure Date: 01/25/2020 Accession Number: [id number] / [id number] Procedure: XR - Cervical Spine Complete CPT Code: Final Report FULL RESULT: EXAM: CERVICAL SPINE RADIOGRAPHY EXAM DATE: 01/25/2020 04:56 PM. CLINICAL HISTORY: Left shoulder pain and neck pain. COMPARISONS: None. TECHNIQUE: 5 views. FINDINGS: The exam is limited by the inability to evaluate the spinal alignment given the inability to see below the level of the C6 vertebral body and by the inability to adequately evaluate the dens. An irregularity at the base of the dens is suggested on the lateral radiograph. Multilevel facet arthropathy is seen. The bones are osteopenic. Vascular calcifications are seen in the soft tissues. IMPRESSION: Inadequate evaluation of the cervical spine to exclude traumatic injury. Suggestion of irregularity in the dens, which may represent a nondisplaced fracture. Recommend CT cervical spine for further evaluation. RADIA The call report notification system was initiated by Dr. Flor Mloina at 03:13 AM on 01/26/2020.
== END 2020-01-25 16:26 | disposition home or self-care (01) ==
LOC: DI 16:25
PROVIDERS: ATTEND Family Medicine
DX: M47.812 Spondylosis without myelopathy or radiculopathy, cervical region (principal); M25.512 Pain in left shoulder
CPT/HCPCS: 72050

== ENCOUNTER 2020-02-05 12:25 | Outpatient (CLI) | payer OTHER, MEDICARE ==
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
== END 2020-02-05 12:26 | disposition home or self-care (01) ==
LOC: DI 12:25
PROVIDERS: ATTEND Nurse Practitioner
DX: S12.121A Other nondisplaced dens fracture, initial encounter for closed fracture (principal); M47.812 Spondylosis without myelopathy or radiculopathy, cervical region; M50.323 Other cervical disc degeneration at C6-C7 level; M48.02 Spinal stenosis, cervical region
CPT/HCPCS: 72125

== ENCOUNTER 2020-02-05 13:38 | Emergency (ER) | payer OTHER, MEDICARE ==
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
[2020-02-05 15:30] VITALS: BP 135/100
== END 2020-02-05 15:38 | disposition home or self-care (01) ==
LOC: ED 13:38
DX: S12.121A Other nondisplaced dens fracture, initial encounter for closed fracture (principal); S16.1XXA Strain of muscle, fascia and tendon at neck level, initial encounter; V53.5XXA Driver of pick-up truck or van injured in collision with car, pick-up truck or van in traffic accident, initial encounter; Y93.89 Activity, other specified; Y92.410 Unspecified street and highway as the place of occurrence of the external cause; I10 Essential (primary) hypertension; Z87.891 Personal history of nicotine dependence; M47.812 Spondylosis without myelopathy or radiculopathy, cervical region; M50.323 Other cervical disc degeneration at C6-C7 level; M48.02 Spinal stenosis, cervical region
CPT/HCPCS: 72125; 99282; 99283

== ENCOUNTER 2020-03-03 06:34 | Emergency (ER) | payer MEDICARE, OTHER ==
[2020-03-03 06:48] VITALS: BP 98/63
== END 2020-03-03 08:27 | disposition left against medical advice (07) ==
LOC: ED 06:34
DX: Z53.21 Procedure and treatment not carried out due to patient leaving prior to being seen by health care provider (principal)

== ENCOUNTER 2020-04-05 13:32 | Emergency (ER) | payer MEDICARE, OTHER ==
--- NOTE | 2020-04-05 13:50 | ED Physician Documentation ---
PD HPI DYSPNEA - Stated complaint Stated Complaint: SOA/COUGH - Chief complaint Chief Complaint: Resp - History obtained from History obtained from: Patient - History of Present Illness Timing - onset: How many days ago (5) Timing - onset during: Light activity Timing - duration: Days (5) Timing - details: Gradual onset, Still present, Still present in ED Inciting event(s): URI Improved by: O2, Inhaler/neb, Steroids, Rest Worsened by: Exertion, Coughing Associated symptoms: Cough, Wheezing Similar symptoms before: Diagnosis (COPD) Recently seen: Not recently seen Review of Systems Constitutional: denies: Fever Eyes: denies: Decreased vision Ears: denies: Ear pain Nose: reports: Congestion Throat: denies: Sore throat Cardiac: denies: Chest pain / pressure, Palpitations Respiratory: reports: Dyspnea, Cough, Wheezing GI: denies: Abdominal Pain, Nausea, Vomiting : denies: Dysuria, Frequency PD PAST MEDICAL HISTORY - Past Medical History Cardiovascular: Hypertension Respiratory: COPD, Emphysema Endocrine/Autoimmune: None GI: None : Frequency HEENT: Chronic hearing loss, Other Psych: None Musculoskeletal: Gout Derm: None - Past Surgical History Past Surgical History: Yes Ortho: Hip replacement, Knee replacement, Shoulder arthroplasty - Present Medications Home Medications: Ambulatory Orders Medication Instructions Recorded Confirmed Albuterol 1 puffs INH Q4HR PRN 04/18/17 11/02/18 Aspirin [Adult Low Dose Aspirin EC] 81 mg PO DAILY 04/18/17 11/02/18 Budesonide/Formoterol Fumarate 2 puffs INH BID 04/18/17 11/01/18 [Symbicort 160-4.5 Mcg Inhaler] LORazepam [Lorazepam] 1 mg PO DAILY PRN 04/18/17 11/02/18 Pravastatin Sodium 80 mg PO DAILY 04/18/17 11/02/18 Tamsulosin HCl [Flomax] 0.4 mg PO DAILY 04/18/17 11/02/18 lisinopriL [Lisinopril] 20 mg PO DAILY 04/18/17 11/02/18 Finasteride [Proscar] 5 mg PO DAILY 11/01/18 11/02/18 Magnesium 250 mg PO DAILY PM 11/01/18 11/01/18 Tiotropium [place] [Spiriva] 1 puffs INH DAILY 11/01/18 11/02/18 Benzonatate [Tessalon Perle] 100 - 200 mg PO TID PRN #30 capsule 05/19/19 predniSONE [Deltasone] 10 mg PO [id number] #42 tab 05/19/19 Naproxen 375 mg PO BID #20 tablet 02/05/20 Tizanidine HCl 4 mg PO TID PRN #25 capsule 02/05/20 Azithromycin [Zithromax] 250 mg PO DAILY #6 tablet 04/05/20 predniSONE [Deltasone] 10 mg PO ONCE #26 tablet 04/05/20 - Allergies Allergies/Adverse Reactions: Allergies Allergy/AdvReac Type Severity Reaction Status Date / Time oxycodone [Oxycodone] Allergy Intermediate Respiratory Verified 02/05/20 13:47 - Social History Does the pt smoke?: No Smoking Status: Never smoker Does the pt drink ETOH?: No Does the pt have substance abuse?: No - Immunizations Immunizations are current?: Yes PD ED PE NORMAL - Vitals Vital signs reviewed: Yes (tachypneic at rest) - General General: Alert and oriented X 3, Well developed/nourished, Other (tachypneic at rest ) - HEENT HEENT: Atraumatic, PERRL, EOMI, Other (dry mucous membranes ) - Neck Neck: Supple, no meningeal sign, No bony TTP - Cardiac Cardiac: RRR, No murmur - Respiratory Respiratory: Other (tachypneic with diminished breath sounds and course rhonchi mid lung field right. 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, No motor deficit, No sensory deficit, Normal speech Eye Opening: Spontaneous Motor: Obeys Commands Verbal: Oriented GCS Score: 15 - Psych Psych: Normal mood, Normal affect Results - Vitals Vitals: Vital Signs - 24 hr 04/05/20 04/05/20 04/05/20 13:39 13:41 14:21 Temperature 36.9 C Heart Rate 92 93 87 Respiratory 26 H 18 18 Rate Blood Pressure 150/60 H 139/70 H O2 Saturation 95 95 Oxygen O2 Source Room air - Labs Labs: Laboratory Tests 04/05/20 04/05/2004/05/20 14:19 14:19 14:19 WBC 6.6 RBC 4.42 L Hgb 13.8 L Hct 41.9 L MCV 94.8 H MCH 31.2 H MCHC 32.9 RDW 12.7 Plt Count 215 MPV 8.6 Neut # (Auto) 4.4 Lymph # (Auto) 1.3 L [place] # (Auto) 0.7 Eos # (Auto) 0.2 Baso # (Auto) 0.0 Absolute Nucleated RBC 0.00 Nucleated RBC % 0.0 Sodium 139 Potassium 3.9 Chloride 105 Carbon Dioxide 26 Anion Gap 8.0 BUN 27 H Creatinine 0.9 Estimated GFR (MDRD) 82 L Glucose 152 H Calcium 9.2 Total Bilirubin 0.4 AST 20 ALT 14 Alkaline Phosphatase 62 B-Natriuretic Peptide 35 Total Protein 7.1 Albumin 4.4 Globulin 2.7 Albumin/Globulin Ratio 1.6 Lipase 33 PD MEDICAL DECISION MAKING - ED course Complexity details: reviewed old records, reviewed results, re-evaluated patient, considered differential, d/w patient ED course: 79-year-old male with a history of COPD has developed cough increased shortness of breath without fever. He does not have pneumonia on his chest x-ray. Here in the emergency department he is administered a DuoNeb treatment and 125 mg of Solu-Medrol. The Solu-Medrol given by push gives the patient a stomachache for a brief period of time. The patient has improvement with the DuoNeb treatment and we will place him on a course of prednisone and azithromycin. Departure - Departure Disposition: 01 Home, Self Care Clinical Impression: COPD exacerbation Condition: Stable Instructions: ED COPD Flare Follow-Up: Juve Delgado MD [Primary Care Provider] - Prescriptions: Azithromycin [Zithromax] 250 mg PO DAILY #6 tablet predniSONE [Deltasone] 10 mg PO ONCE #26 tablet
[2020-04-05] MEDS: IPRATROPIUM/ALBUTEROL 3 ML NEB INH STA (14:20)
[2020-04-05 14:23] LABS: BASOPHILS % (AUTO) 0.5 %; EOSINOPHILS # (AUTO) 0.2 10^3/uL (0.0-0.7); EOSINOPHILS % (AUTO) 3.2 %; HGB - HEMOGLOBIN 13.8 g/dL (14.0-18.0); LYMPHOCYTES # (AUTO) 1.3 10^3/uL (1.5-3.5); LYMPHOCYTES % (AUTO) 19.5 %; MEAN CORPUSCULAR HEMOGLOBIN 31.2 pg (27.0-31.0); MEAN CORPUSCULAR HGB CONC 32.9 g/dL (32.0-36.0); MEAN CORPUSCULAR VOLUME 94.8 fL (80.0-94.0); MEAN PLATELET VOLUME 8.6 fL (7.4-11.4); MONOCYTES # (AUTO) 0.7 10^3/uL (0.0-1.0); MONOCYTES % (AUTO) 10.4 %; NEUTROPHILS # (AUTO) 4.4 10^3/uL (1.5-6.6); NEUTROPHILS % (AUTO) 66.1 %; PLT - PLATELET COUNT 215 10^3/uL (130-450); RED BLOOD COUNT 4.42 10^6/uL (4.70-6.10); RED CELL DISTRIBUTION WIDTH 12.7 % (12.0-15.0); WHITE BLOOD COUNT 6.6 x10^3/uL (4.8-10.8)
--- NOTE | 2020-04-05 14:36 | XRAY Report ---
Reason: soa Procedure Date: 04/05/2020 Accession Number: [id number] / [id number] Procedure: XR - Chest 1 View X-Ray CPT Code: 34263 Final Report FULL RESULT: PROCEDURE: Chest 1 View X-Ray INDICATIONS: soa TECHNIQUE: One view of the chest was acquired. COMPARISON: 05/19/2019 FINDINGS: Surgical changes and devices: None. Lungs and pleura: No pleural effusions or pneumothorax. Lungs are clear. Mediastinum: Mediastinal contours appear normal. Heart size is normal. Bones and chest wall: Bilateral shoulder arthroplasties. No suspicious bony lesions. Overlying soft tissues appear unremarkable. IMPRESSION: No acute cardiopulmonary disease process. Reviewed by: Julianna Hunter MD, PhD on 04/05/2020 2:35 PM PDT Approved by: Julianna Hunter MD, PhD on 04/05/2020 2:35 PM PDT Station ID: [id number]
[2020-04-05 14:42] LABS: ALBUMIN 4.4 g/dL (3.2-5.5); ALBUMIN/GLOBULIN RATIO 1.6 (1.0-2.2); BILIRUBIN,TOTAL 0.4 mg/dL (0.2-1.0); CALCIUM 9.2 mg/dL (8.5-10.3); CREATININE 0.9 mg/dL (0.6-1.2); TOTAL PROTEIN 7.1 g/dL (6.7-8.2)
[2020-04-05] MEDS: methylPREDNISolone SUCCINATE 125 MG/2 ML VIAL IVP STA (14:57)
[2020-04-05 15:56] VITALS: BP 136/88
== END 2020-04-05 15:56 | disposition home or self-care (01) ==
LOC: ED 13:32
DX: J44.1 Chronic obstructive pulmonary disease with (acute) exacerbation (principal); I10 Essential (primary) hypertension; Z79.82 Long term (current) use of aspirin
CPT/HCPCS: 36415; 71045; 80053; 83690; 83880; 85025; 94640; 96374; 99284

== ENCOUNTER 2020-05-02 14:56 | Outpatient (CLI) | payer MEDICARE, OTHER | END 2020-05-02 14:57 | disposition EMS.NT | LOC: EMS 14:56 | PROVIDERS: ATTEND Surgery | DX: T22.192A Burn of first degree of multiple sites of left shoulder and upper limb, except wrist and hand, initial encounter (principal); T22.191A Burn of first degree of multiple sites of right shoulder and upper limb, except wrist and hand, initial encounter; W40.1XXA Explosion of explosive gases, initial encounter; Y92.019 Unspecified place in single-family (private) house as the place of occurrence of the external cause ==

== ENCOUNTER 2020-10-07 15:18 | Emergency (ER) | payer MEDICARE, OTHER ==
--- NOTE | 2020-10-07 16:07 | ED Physician Documentation ---
History of Present Illness - Stated complaint Stated Complaint: RIGHT FOOT PAIN - Chief complaint Chief Complaint: Ext Problem - History obtained from History obtained from: Patient - History of Present Illness Timing: How many weeks ago (2) Pain level max: 5 Pain level now: 2 - Additonal information Additional information: Patient is a 79-year-old male who presents to the emergency department with right foot pain. This is been ongoing for the past 2 weeks. Worse with walking, better with rest. States he was recently diagnosed with sciatica and started on prednisone. Does not recall any injuries. Worse with walking, better with rest. States that the pain is mostly in the posterior calf and heel. Feels like the leg is swollen. Review of Systems Constitutional: denies: Fever, Chills Respiratory: denies: Dyspnea GI: denies: Nausea, Vomiting Skin: denies: Rash Musculoskeletal: denies: Neck pain, Back pain Neurologic: denies: Headache PD PAST MEDICAL HISTORY - Past Medical History Cardiovascular: Hypertension Respiratory: COPD, Emphysema Neuro: None Endocrine/Autoimmune: None GI: None : Frequency HEENT: Chronic hearing loss, Other Psych: None Musculoskeletal: Gout Derm: None - Past Surgical History Past Surgical History: Yes Ortho: Hip replacement, Knee replacement, Shoulder arthroplasty - Present Medications Home Medications: Ambulatory Orders Medication Instructions Recorded Confirmed Albuterol 1 puffs INH Q4HR PRN 04/18/17 11/02/18 Aspirin [Adult Low Dose Aspirin EC] 81 mg PO DAILY 04/18/17 11/02/18 Budesonide/Formoterol Fumarate 2 puffs INH BID 04/18/17 11/01/18 [Symbicort 160-4.5 Mcg Inhaler] LORazepam [Lorazepam] 1 mg PO DAILY PRN 04/18/17 11/02/18 Pravastatin Sodium 80 mg PO DAILY 04/18/17 11/02/18 Tamsulosin HCl [Flomax] 0.4 mg PO DAILY 04/18/17 11/02/18 lisinopriL [Lisinopril] 20 mg PO DAILY 04/18/17 11/02/18 Finasteride [Proscar] 5 mg PO DAILY 11/01/18 11/02/18 Magnesium 250 mg PO DAILY PM 11/01/18 11/01/18 Tiotropium [place] [Spiriva] 1 puffs INH DAILY 11/01/18 11/02/18 Benzonatate [Tessalon Perle] 100 - 200 mg PO TID PRN #30 capsule 05/19/19 predniSONE [Deltasone] 10 mg PO [id number] #42 tab 05/19/19 Naproxen 375 mg PO BID #20 tablet 02/05/20 Tizanidine HCl 4 mg PO TID PRN #25 capsule 02/05/20 Azithromycin [Zithromax] 250 mg PO DAILY #6 tablet 04/05/20 predniSONE [Deltasone] 10 mg PO ONCE #26 tablet 04/05/20 - Allergies Allergies/Adverse Reactions: Allergies Allergy/AdvReac Type Severity Reaction Status Date / Time oxycodone [Oxycodone] Allergy Intermediate Respiratory Verified 02/05/20 13:47 - Social History Does the pt smoke?: No Smoking Status: Never smoker Does the pt drink ETOH?: No Does the pt have substance abuse?: No - Immunizations Immunizations are current?: Yes PD ED PE NORMAL - Vitals Vital signs reviewed: Yes - General General: Alert and oriented X 3, No acute distress - HEENT HEENT: Moist mucous membranes - Neck Neck: Supple, no meningeal sign - Cardiac Cardiac: RRR - Respiratory Respiratory: No respiratory distress, Clear bilaterally - Derm Derm: Warm and dry - Extremities Extremities: Other (Minimal swelling to the dorsum of the right foot. No bony tenderness over the foot. Does have some posterior calf tenderness. Minimal swelling. No redness. Neurovascularly intact. diminshed pulses B DP and PT) - Neuro Neuro: Alert and oriented X 3 - Psych Psych: Normal mood, Normal affect Results - Vitals Vitals: Vital Signs - 24 hr 10/07/20 10/07/20 15:24 17:18 Temperature 35.8 C L 36.8 C Heart Rate 91 60 Respiratory 20 19 Rate Blood Pressure 158/92 H 149/89 H O2 Saturation 97 100 Oxygen O2 Source Room air - Rads (name of study) Duplex ultrasound right lower extremity Radiology: Prelim report reviewed, EMP read contemporaneously, See rad report (No DVT in the right lower extremity. ) Right foot x-ray Radiology: Prelim report reviewed, EMP read contemporaneously, See rad report (no acute abnormality.) PD MEDICAL DECISION MAKING - ED course Complexity details: reviewed results, re-evaluated patient, considered differential, d/w patient ED course: Patient is having symptoms of claudication, worse with walking and better with rest. Appears to have peripheral arterial disease on ultrasound, this is consistent with the appearance of the leg. No acute arterial occlusion. Recommend that he follow-up with his doctor for further care of this. Will likely need further imaging of his lower extremities as well. Patient counseled regarding signs and symptoms for which I believe and urgent re-evaluation would be necessary. Patient with good understanding of and agreement to plan and is comfortable going home at this time This document was made in part using voice recognition software. While efforts are made to proofread this document, sound alike and grammatical errors may occur. Departure - Departure Disposition: 01 Home, Self Care Clinical Impression: Peripheral arterial disease, Claudication Condition: Good Instructions: Peripheral Artery Disease, PAD Walking Program Follow-Up: your,doctor in 1 week [Other] Comments: You have peripheral arterial disease and this is causing claudication. You need to follow up with your doctor for further care. Discharge Date/Time: 10/07/20 17:18
--- NOTE | 2020-10-07 16:12 | XRAY Report ---
PROCEDURE: Foot 3 View RT INDICATIONS: R foot pain, no swelling TECHNIQUE: 3 views of the foot were acquired. COMPARISON: None FINDINGS: Bones: No fractures or dislocations. No suspicious bony lesions. Soft tissues: No tibiotalar joint effusion. Achilles tendon appears normal. IMPRESSION: No evidence acute bony abnormality of the right foot. Comment: If the patient continues to have unexplained pain, consider advanced imaging such as bone sc an versus CT versus MRI. Reviewed by: Vahe Recinos MD on 10/07/2020 4:11 PM PST Approved by: Vahe Recinos MD on 10/07/2020 4:11 PM PST Station ID: [id number]
[2020-10-07 17:19] VITALS: BP 149/89
--- NOTE | 2020-10-07 17:32 | Ultrasound Report ---
PROCEDURE: Duplex Ext Veins Right INDICATIONS: R leg pain, swelling TECHNIQUE: Real-time imaging, as well as color and pulse Doppler interrogation, were performed of the lower extr emity deep veins from the inguinal ligament to the popliteal fossa. COMPARISON: None. FINDINGS: The deep veins are normally compressible, and free of intraluminal thrombus. Color and pu lse Doppler demonstrate normal phasic intraluminal flow. There is normal augmentation response to di stal compression maneuver. Atherosclerotic plaque is seen in the arteries of the upper thigh. IMPRESSION: No DVT in the right lower extremity. Reviewed by: Boogie Nation on 10/07/2020 5:30 PM [facility] Approved by: Boogie Nation on 10/07/2020 5:30 PM [facility] Station ID: [id number]
== END 2020-10-07 17:18 | disposition home or self-care (01) ==
LOC: ED 15:18
DX: I70.211 Atherosclerosis of native arteries of extremities with intermittent claudication, right leg (principal); I10 Essential (primary) hypertension; Z79.82 Long term (current) use of aspirin
CPT/HCPCS: 99283; 99284

== ENCOUNTER 2020-10-08 03:02 | Outpatient (CLI) | payer MEDICARE, OTHER | END 2020-10-08 03:03 | disposition critical access hospital (66) | LOC: EMS 03:02 | PROVIDERS: ATTEND Surgery | DX: R06.02 Shortness of breath (principal) | CPT/HCPCS: A0425; A0427 ==

== ENCOUNTER 2020-10-08 03:22 | Emergency (ER) | payer MEDICARE, OTHER ==
[2020-10-08] MEDS ORDERED: ALBUTEROL NEB 2.5 MG/3 ML INH STA (03:36)
[2020-10-08] MEDS ORDERED: DEXAMETHASONE 10 MG/ML VIAL IVP STA (03:36)
[2020-10-08 03:57] LABS: BASOPHILS # (AUTO) 0.1 10^3/uL (0.0-0.1); BASOPHILS % (AUTO) 0.3 %; EOSINOPHILS # (AUTO) 0.1 10^3/uL (0.0-0.7); EOSINOPHILS % (AUTO) 0.4 %; HGB - HEMOGLOBIN 14.9 g/dL (14.0-18.0); LYMPHOCYTES # (AUTO) 2.2 10^3/uL (1.5-3.5); LYMPHOCYTES % (AUTO) 11.1 %; MEAN CORPUSCULAR HEMOGLOBIN 30.6 pg (27.0-31.0); MEAN CORPUSCULAR HGB CONC 31.5 g/dL (32.0-36.0); MEAN CORPUSCULAR VOLUME 97.1 fL (80.0-94.0); MEAN PLATELET VOLUME 8.8 fL (7.4-11.4); MONOCYTES # (AUTO) 1.2 10^3/uL (0.0-1.0); MONOCYTES % (AUTO) 5.8 %; NEUTROPHILS # (AUTO) 16.2 10^3/uL (1.5-6.6); NEUTROPHILS % (AUTO) 81.6 %; PLT - PLATELET COUNT 394 10^3/uL (130-450); RED BLOOD COUNT 4.87 10^6/uL (4.70-6.10); RED CELL DISTRIBUTION WIDTH 13.5 % (12.0-15.0); WHITE BLOOD COUNT 19.8 x10^3/uL (4.8-10.8)
[2020-10-08 04:03] LABS: CALCIUM 9.8 mg/dL (8.5-10.3)
[2020-10-08 04:48] LABS: C. PNEUMONIAE- RESP PCR PANEL NOT DETECTED
[2020-10-08 06:24] VITALS: BP 158/82
--- NOTE | 2020-10-08 08:35 | XRAY Report ---
PROCEDURE: Chest 1 View X-Ray INDICATIONS: chest pain TECHNIQUE: One view of the chest was acquired. COMPARISON: CXR 04/05/2020, 05/19/2019. Lung apices on CT cervical spine 02/05/2020. FINDINGS: Surgical changes and devices: None. Lungs and pleura: No pleural effusions or pneumothorax. Minimal bibasilar hazy opacity. No consolida tion. Prominent lung volumes. Mediastinum: Mediastinal contours appear normal. Heart size is normal. Bones and chest wall: No suspicious bony lesions. Bilateral shoulder arthroplasties. Overlying soft tissues appear unremarkable. IMPRESSION: Minimal bibasilar hazy opacity most compatible with atelectasis. No consolidation. Findings suggestive of emphysematous change. This exam is concordant with the overnight preliminary interpretation. Reviewed by: Hudson Reed MD on 10/08/2020 7:34 AM [facility] Approved by: Hudson Reed MD on 10/08/2020 7:34 AM [facility] Station ID: [id number]
--- NOTE | 2020-10-09 08:16 | ED Physician Documentation ---
PD HPI DYSPNEA - Stated complaint Stated Complaint: SOA - Chief complaint Chief Complaint: Resp - History obtained from History obtained from: Patient, EMS - History of Present Illness Timing - onset: Today Timing - duration: Hours Timing - details: Gradual onset Pain level max: 0 Pain level now: 0 Inciting event(s): Out of meds (out of oxygen (although he says he only uses it PRN)) Improved by: Rest, Sitting up Worsened by: Exertion Associated symptoms: No: Fever, Cough, Wheezing, Chest pain / discomfort, Bilateral edema, Unilateral edema Similar symptoms before: Diagnosis (COPD) Recently seen: Emergency Dept - Additional information Additional information: T+R from this ED yesterday for unrelated c/o (leg pain/swelling RLE; no DVT on US, ED MD suspected PAD/claudication). He says that since earlier today, he has had gradually worsening dyspnea c/w previous COPD exacerbations. He has oxygen that he only uses as needed for such episodes, but he found that the oxygen was completely depleted. He says he uses albuterol nebs TID and has been using these without improvement today. EMS administered duoneb en route. Patient says he recently was on a prednisone taper and upon finishing that, was prescribed QD prednisone by another doctor (no taper) of which he has 2 or 3 tablets remaining. Review of Systems Constitutional: denies: Fever, Chills, Sweats Cardiac: reports: Reviewed and negative Respiratory: reports: Dyspnea. denies: Cough, Hemoptysis, Wheezing GI: reports: Reviewed and negative PD PAST MEDICAL HISTORY - Past Medical History Past Medical History: Yes Cardiovascular: Hypertension Respiratory: COPD, Emphysema Neuro: None Endocrine/Autoimmune: None GI: None : Frequency HEENT: Chronic hearing loss, Other Psych: None Musculoskeletal: Gout Derm: None - Past Surgical History Past Surgical History: Yes Ortho: Hip replacement, Knee replacement, Shoulder arthroplasty - Present Medications Home Medications: Ambulatory Orders Medication Instructions Recorded Confirmed Albuterol 1 puffs INH Q4HR PRN 04/18/17 11/02/18 Aspirin [Adult Low Dose Aspirin EC] 81 mg PO DAILY 04/18/17 11/02/18 Budesonide/Formoterol Fumarate 2 puffs INH BID 04/18/17 11/01/18 [Symbicort 160-4.5 Mcg Inhaler] LORazepam [Lorazepam] 1 mg PO DAILY PRN 04/18/17 11/02/18 Pravastatin Sodium 80 mg PO DAILY 04/18/17 11/02/18 Tamsulosin HCl [Flomax] 0.4 mg PO DAILY 04/18/17 11/02/18 lisinopriL [Lisinopril] 20 mg PO DAILY 04/18/17 11/02/18 Finasteride [Proscar] 5 mg PO DAILY 11/01/18 11/02/18 Magnesium 250 mg PO DAILY PM 11/01/18 11/01/18 Tiotropium [place] [Spiriva] 1 puffs INH DAILY 11/01/18 11/02/18 Benzonatate [Tessalon Perle] 100 - 200 mg PO TID PRN #30 capsule 05/19/19 predniSONE [Deltasone] 10 mg PO [id number] #42 tab 05/19/19 Naproxen 375 mg PO BID #20 tablet 02/05/20 Tizanidine HCl 4 mg PO TID PRN #25 capsule 02/05/20 Azithromycin [Zithromax] 250 mg PO DAILY #6 tablet 04/05/20 predniSONE [Deltasone] 10 mg PO ONCE #26 tablet 04/05/20 methocarbamoL [Robaxin] 500 mg PO Q6H PRN #14 tablet 10/08/20 predniSONE [Deltasone] 10 mg PO [id number] #42 tab 10/08/20 - Allergies Allergies/Adverse Reactions: Allergies Allergy/AdvReac Type Severity Reaction Status Date / Time oxycodone [Oxycodone] Allergy Intermediate Respiratory Verified 10/08/20 03:31 - Social History Does the pt smoke?: No Smoking Status: Never smoker Does the pt drink ETOH?: No Does the pt have substance abuse?: No - Immunizations Immunizations are current?: Yes PD ED PE NORMAL - Vitals Vital signs reviewed: Yes - General General: Alert and oriented X 3, Well developed/nourished, Other (obvious respiratory distress; speaks in 1-2 word sentences, anxious, insists on sitting over edge of bed in tripod position, tachypneic, ) - Neck Neck: Supple, no meningeal sign - Cardiac Cardiac: No murmur - Abdomen Abdomen: Soft, Non tender - Derm Derm: Normal color, Other (mild diaphoresis) PD ED PE EXPANDED - Cardiac Cardiac: Tachy, Regular Rhythm - Respiratory Respiratory: Distress, Accessory mm use, Decreased breath sounds Results - Vitals Vitals: Oxygen O2 Source Room air Oxygen Flow Rate 6 - EKG (time done) No standard instances Rate: Rate (enter#) (101) Rhythm: Sinus tachycardia [place]: Normal Intervals: Normal ME QRS: Normal Ischemia: Normal ST segments - Labs Labs: Laboratory Tests 10/08/20 10/08/20 10/08/20 03:47 03:47 03:47 WBC 19.8 H RBC 4.87 Hgb 14.9 Hct 47.3 MCV 97.1 H MCH 30.6 MCHC 31.5 L RDW 13.5 Plt Count 394 MPV 8.8 Neut # (Auto) 16.2 H Lymph # (Auto) 2.2 Payne # (Auto) 1.2 H Eos # (Auto) 0.1 Baso # (Auto) 0.1 Absolute Nucleated RBC 0.00 Nucleated RBC % 0.0 Sodium 144 Potassium 4.1 Chloride 106 Carbon Dioxide 28 Anion Gap 10.0 BUN 30 H Creatinine 1.0 Estimated GFR (MDRD) 72 L Glucose 139 H Calcium 9.8 Troponin I High Sens B-Natriuretic Peptide 83 Nasal Adenovirus (PCR) Nasal B. parapertussis DNA (PCR) Nasal Coronavir 229E PCR Nasal Coronavir HKU1 PCR Nasal Coronavir NL63 PCR Nasal Coronavir OC43 PCR Nasal Enterovir/Rhinovir PCR Nasal Influenza B PCR Nasal Influenza A PCR Nasal Parainfluen 1 PCR Nasal Parainfluen 2 PCR Nasal Parainfluen 3 PCR Nasal Parainfluen 4 PCR Nasal RSV (PCR) Nasal B.pertussis DNA PCR Nasal C.pneumoniae (PCR) Neo Human Metapneumo PCR Nasal M.pneumoniae (PCR) Nasal SARS-CoV-2 (PCR) 10/08/20 10/08/20 03:47 03:55 WBC RBC Hgb Hct MCV MCH MCHC RDW Plt Count MPV Neut # (Auto) Lymph # (Auto) Payne # (Auto) Eos # (Auto) Baso # (Auto) Absolute Nucleated RBC Nucleated RBC % Sodium Potassium Chloride Carbon Dioxide Anion Gap BUN Creatinine Estimated GFR (MDRD) Glucose Calcium Troponin I High Sens 24.7 H* B-Natriuretic Peptide Nasal Adenovirus (PCR) NOT DETECTED Nasal B. parapertussis DNA (PCR) NOT DETECTED Nasal Coronavir 229E PCR NOT DETECTED Nasal Coronavir HKU1 PCR NOT DETECTED Nasal Coronavir NL63 PCR NOT DETECTED Nasal Coronavir OC43 PCR NOT DETECTED Nasal Enterovir/Rhinovir PCR NOT DETECTED Nasal Influenza B PCR NOT DETECTED Nasal Influenza A PCR NOT DETECTED Nasal Parainfluen 1 PCR NOT DETECTED Nasal Parainfluen 2 PCR NOT DETECTED Nasal Parainfluen 3 PCR NOT DETECTED Nasal Parainfluen 4 PCR NOT DETECTED Nasal RSV (PCR) NOT DETECTED Nasal B.pertussis DNA PCR NOT DETECTED Nasal C.pneumoniae (PCR) NOT DETECTED Neo Human Metapneumo PCR NOT DETECTED Nasal M.pneumoniae (PCR) NOT DETECTED Nasal SARS-CoV-2 (PCR) NOT DETECTED - Rads (name of study) chest xray Radiology: Prelim report reviewed, See rad report PD MEDICAL DECISION MAKING - ED course Complexity details: reviewed old records, reviewed results, re-evaluated patient, considered differential, d/w patient ED course: given albuterol neb and IV decadron early in ED stay. He exhibited gradual but steady improvement with eventual resolution of his respiratory distress. On reevaluation prior to discharge, he is speaking in full sentences, conversant, and in NAD. He says he feels very much at his baseline. He has 96-98% pulse ox on room air. H+P and ED course is c/w COPD flare. He requests d/c home which is reasonable given his reassuring tests and marked improvement during ED stay Departure - Departure Disposition: 01 Home, Self Care Clinical Impression: COPD exacerbation Condition: Good Instructions: ED COPD Flare Follow-Up: Juve Delgado MD [Primary Care Provider] - Within 3 Days Prescriptions: predniSONE [Deltasone] 10 mg PO [id number] #42 tab methocarbamoL [Robaxin] 500 mg PO Q6H PRN #14 tablet PRN Reason: Pain Discharge Date/Time: 10/08/20 07:06
== END 2020-10-08 07:06 | disposition home or self-care (01) ==
LOC: EDUNIT# → ED 03:22
DX: J43.9 Emphysema, unspecified (principal); R06.82 Tachypnea, not elsewhere classified; R00.0 Tachycardia, unspecified; Z20.828 Contact with and (suspected) exposure to other viral communicable diseases; I10 Essential (primary) hypertension; Z79.82 Long term (current) use of aspirin
CPT/HCPCS: 0202U; 36415; 80048; 83880; 84484; 85025; 93005; 94640; 96374; 99284

== ENCOUNTER 2020-11-09 07:22 | Outpatient (CLI) | payer MEDICARE, OTHER | END 2020-11-09 07:23 | disposition critical access hospital (66) | LOC: EMS 07:22 | PROVIDERS: ATTEND Surgery | DX: R06.00 Dyspnea, unspecified (principal) | CPT/HCPCS: A0425; A0427 ==

== ENCOUNTER 2020-11-09 07:45 | Emergency (ER) | payer MEDICARE, OTHER ==
[2020-11-09] MEDS ORDERED: IPRATROPIUM/ALBUTEROL 3 ML NEB INH STA (07:49)
--- NOTE | 2020-11-09 07:54 | ED Physician Documentation ---
PD HPI DYSPNEA - Stated complaint Stated Complaint: SOA - Chief complaint Chief Complaint: Resp - History obtained from History obtained from: Patient, EMS - Additional information Additional information: This is a 79-year-old gentleman with COPD presents by ambulance with apparent exacerbation. He uses nebs at home and due to the power outage could not use his nebulizer overnight. This resulted in more shortness of breath than normal. He denies any cough. Denies chest pain. On the way here got a couple of puffs of an albuterol MDI and 125 mg of Solu-Medrol with mild relief. Denies new ped al edema but has known peripheral vascular disease causing some right foot swelling and pain. Adolescent Specialist notes that he has oxygen at home through a tank that does not look like it is a medical tank,, more like welding oxygen. They also note it is pretty much empty. Review of Systems Ten Systems: 10 systems reviewed and negative Constitutional: denies: Fever, Chills Respiratory: reports: Dyspnea, Wheezing. denies: Cough GI: denies: Abdominal Pain PD PAST MEDICAL HISTORY - Past Medical History Cardiovascular: Hypertension Respiratory: COPD, Emphysema Neuro: None Endocrine/Autoimmune: None GI: None : Frequency HEENT: Chronic hearing loss, Other Psych: None Musculoskeletal: Gout Derm: None - Past Surgical History Past Surgical History: Yes Ortho: Hip replacement, Knee replacement, Shoulder arthroplasty - Present Medications Home Medications: Ambulatory Orders Medication Instructions Recorded Confirmed Albuterol 1 puffs INH Q4HR PRN 04/18/17 11/02/18 Aspirin [Adult Low Dose Aspirin EC] 81 mg PO DAILY 04/18/17 11/02/18 Budesonide/Formoterol Fumarate 2 puffs INH BID 04/18/17 11/01/18 [Symbicort 160-4.5 Mcg Inhaler] LORazepam [Lorazepam] 1 mg PO DAILY PRN 04/18/17 11/02/18 Pravastatin Sodium 80 mg PO DAILY 04/18/17 11/02/18 Tamsulosin HCl [Flomax] 0.4 mg PO DAILY 04/18/17 11/02/18 lisinopriL [Lisinopril] 20 mg PO DAILY 04/18/17 11/02/18 Finasteride [Proscar] 5 mg PO DAILY 11/01/18 11/02/18 Magnesium 250 mg PO DAILY PM 11/01/18 11/01/18 Tiotropium [place] [Spiriva] 1 puffs INH DAILY 11/01/18 11/02/18 Naproxen 375 mg PO BID #20 tablet 02/05/20 Tizanidine HCl 4 mg PO TID PRN #25 capsule 02/05/20 predniSONE [Deltasone] 20 mg PO [id number] #21 tab 11/09/20 - Allergies Allergies/Adverse Reactions: Allergies Allergy/AdvReac Type Severity Reaction Status Date / Time oxycodone [Oxycodone] Allergy Intermediate Respiratory Verified 11/09/20 07:49 - Social History Does the pt smoke?: No Smoking Status: Never smoker Does the pt drink ETOH?: No Does the pt have substance abuse?: No - Immunizations Immunizations are current?: Yes PD ED PE NORMAL - Vitals Vital signs reviewed: Yes - General General: Alert and oriented X 3, Other (Mildly tachypneic and very hard of hearing and otherwise no distress.) - HEENT HEENT: PERRL, EOMI - Neck Neck: Supple, no meningeal sign, No bony TTP - Cardiac Cardiac: RRR, No murmur - Respiratory Respiratory: Other (Rhonchorous breath sounds with inspiratory and expiratory wheezing, mild tachypnea. Moderate air motion.) - Abdomen Abdomen: Non tender - Back Back: No CVA TTP, No spinal TTP - Derm Derm: Normal color, Warm and dry - Extremities Extremities: No edema, No calf tenderness / cord - Neuro Neuro: Alert and oriented X 3, Normal speech Results - Vitals Vitals: Vital Signs - 24 hr 11/09/20 11/09/20 07:44 08:05 Temperature 36.3 C L Heart Rate 104 H 100 Respiratory 30 H 20 Rate Blood Pressure 168/109 H O2 Saturation 96 Oxygen O2 Source Nasal cannula Oxygen Flow Rate 2 - Labs Labs: Laboratory Tests 11/09/20 11/09/20 11/09/20 08:21 08:21 08:21 WBC 9.3 RBC 4.57 L Hgb 14.0 Hct 44.0 MCV 96.3 H MCH 30.6 MCHC 31.8 L RDW 13.9 Plt Count 304 MPV 8.5 Neut # (Auto) 7.2 H Lymph # (Auto) 1.1 L [place] # (Auto) 0.6 Eos # (Auto) 0.2 Baso # (Auto) 0.0 Absolute Nucleated RBC 0.00 Nucleated RBC % 0.0 VBG pH 7.292 L VBG pCO2 55.4 H VBG pO2 27.0 VBG HCO3 26.2 VBG Total CO2 27.9 VBG O2 Saturation 50.1 L VBG Base Excess -1.4 Sodium 144 Potassium 4.1 Chloride 105 Carbon Dioxide 28 Anion Gap 11.0 BUN 17 Creatinine 0.8 Estimated GFR (MDRD) 93 Glucose 135 H Calcium 9.6 PD MEDICAL DECISION MAKING - ED course ED course: 79-year-old gentleman with history of COPD presents with apparent exacerbation. He was feeling better after a DuoNeb. Single view chest x-ray interpreted contemporaneously by me shows no acute infiltrates. He does have some mild hyperexpansion. Lab work is relatively unremarkable. He had already received Solu-Medrol on the way here. He does have some acute-looking CO2 retention on venous gas, I offered further nebs and/or admission which he declined. He is eager to go home and feels like he will be okay there. Departure - Departure Disposition: Home, Self Care Clinical Impression: COPD exacerbation Condition: Good Record reviewed to determine appropriate education?: Yes Instructions: COPD Dc Prescriptions: predniSONE [Deltasone] 20 mg PO [id number] #21 tab Comments: Follow-up with your doctor tomorrow or Saturday for recheck. Return if worsening. Continue routine medications.
[2020-11-09 08:38] LABS: BASOPHILS % (AUTO) 0.3 %; EOSINOPHILS # (AUTO) 0.2 10^3/uL (0.0-0.7); EOSINOPHILS % (AUTO) 1.8 %; LYMPHOCYTES # (AUTO) 1.1 10^3/uL (1.5-3.5); LYMPHOCYTES % (AUTO) 12.2 %; MEAN CORPUSCULAR HEMOGLOBIN 30.6 pg (27.0-31.0); MEAN CORPUSCULAR HGB CONC 31.8 g/dL (32.0-36.0); MEAN CORPUSCULAR VOLUME 96.3 fL (80.0-94.0); MEAN PLATELET VOLUME 8.5 fL (7.4-11.4); MONOCYTES # (AUTO) 0.6 10^3/uL (0.0-1.0); MONOCYTES % (AUTO) 6.8 %; NEUTROPHILS # (AUTO) 7.2 10^3/uL (1.5-6.6); NEUTROPHILS % (AUTO) 77.5 %; PLT - PLATELET COUNT 304 10^3/uL (130-450); RED BLOOD COUNT 4.57 10^6/uL (4.70-6.10); RED CELL DISTRIBUTION WIDTH 13.9 % (12.0-15.0); WHITE BLOOD COUNT 9.3 x10^3/uL (4.8-10.8)
[2020-11-09 08:44] LABS: VBG PCO2 55.4 mmHg (41-51); VBG PH 7.292 (7.31-7.41)
[2020-11-09 08:45] LABS: VBG BASE EXCESS -1.4 mmol/L (-2 - +2); VBG TOTAL CO2 27.9 mmol/L (24-29)
[2020-11-09 08:46] LABS: CALCIUM 9.6 mg/dL (8.5-10.3); CREATININE 0.8 mg/dL (0.6-1.2)
--- NOTE | 2020-11-09 08:46 | XRAY Report ---
PROCEDURE: Chest 1 View X-Ray INDICATIONS: dyspnea TECHNIQUE: One view of the chest was acquired. COMPARISON: Chest xray 10/08/20 FINDINGS: Surgical changes and devices: Bilateral shoulder arthroplasty. Lungs and pleura: No pleural effusions or pneumothorax. Lungs are clear. Mediastinum: Mediastinal contours appear normal. Heart size is normal. Bones and chest wall: No suspicious bony lesions. Overlying soft tissues appear unremarkable. IMPRESSION: No acute pulmonary process. Reviewed by: Darshana Bishop MD on 11/09/2020 8:45 AM [facility] Approved by: Darshana Bishop MD on 11/09/2020 8:45 AM [facility] Station ID: [id number]
--- OUTSIDE RECORDS SUMMARY | 2020-11-09 08:51 | EXTERNAL MEDICAL SUMMARY RPT | Continuity of Care Document ---
:1940 Demographics Phone Unavailable Preferred Language Occitan Marital Status Unknown Jain Affiliation Unknown Race Unknown Ethnic Group Unknown Author Organization [facility] Address [address] [place] [address] Phone Care Team Providers Name Role Phone Demmler Unavailable Unavailable MD Unavailable Unavailable Problems date description facility 2020-09-06 00:00:00 Chronic obstructive pulmonary All disease with (acute) exacerbation 2020-09-06 00:00:00 Acute exacerbation of chronic All obstructive airways disease 2020-09-06 00:00:00 Dysphagia All 2020-09-06 00:00:00 Former smoker All 2020-09-06 00:00:00 Obstructive chronic bronchitis [facility] with (acute) exacerbation [place] [facility] 2020-09-06 00:00:00 [facility] [place] [facility] 2020-09-15 00:00:00 Sciatica, right side All 2020-09-15 00:00:00 Health-related behavior All 2020-09-15 00:00:00 Tobacco smoking status NHIS All 2020-09-15 00:00:00 [facility] [place] [facility] 2020-09-15 00:00:00 Tobacco use and exposure [facility] [place] [facility] 2020-09-15 00:00:00 [facility] [place] [facility] 2020-09-15 00:00:00 Former smoker 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 [facility] 2020-10-08 03:22 ESSENTIAL (PRIMARY) [facility] HYPERTENSION 2020-10-08 03:22 TACHYPNEA, NOT ELSEWHERE formerly [facility] CLASSIFIED 2020-10-08 03:22 CONTACT W AND EXPOSURE TO OTH [facility] VIRAL COMMUNICABLE D 2020-10-08 03:22 FDC [facility] 2020-10-08 03:22 EMPHYSEMA, UNSPECIFIED [facility] 2020-10-08 03:22 TACHYCARDIA, UNSPECIFIED formerly [facility] 2020-10-08 03:22 DYSPNEA, UNSPECIFIED [facility] 2020-10-08 03:22 CONTACT W AND EXPOSURE TO OTH [facility] VIRAL COMMUNICABLE DISEASES Allergies date description facility HYDROCODONE [facility] SULFAMETHOXAZOLE [facility] TRIMETHOPRIM [facility] PENICILLINS [facility] NO KNOWN ALLERGIES [facility] PENICILLINS [facility] VITAMIN D ANALOGUE [facility] NO KNOWN ALLERGIES [facility] SOY [facility] MORPHINE [facility] CODEINE [facility] ASPIRIN [facility] LOVASTATIN [facility] DILTIAZEM [facility] HYDROMORPHONE [facility] TAMOXIFEN [facility] LEVOTHYROXINE [facility] LISINOPRIL [facility] GLUTEN [facility] oxycodone [facility] PENICILLINS [facility] oxycodone [facility] Medications date description facility 2020-09-06 00:00:00 null All 2020-09-06 00:00:00 null All 2020-09-06 00:00:00 null All 2020-09-06 00:00:00 null All 2020-09-06 00:00:00 null All 2020-09-06 00:00:00 null All 2020-09-06 00:00:00 null All 2020-09-06 00:00:00 null All 2020-09-06 00:00:00 PREDNISONE All 2020-09-06 00:00:00 AZITHROMYCIN All 2020-09-06 00:00:00 HYDROCODONE-ACETAMINOPHEN All 2020-09-06 00:00:00 PYG-[id number]-[id number]-MGHYDR-SIMETH All 2020-09-06 00:00:00 PREDNISONE All 2020-09-06 00:00:00 AZITHROMYCIN All 2020-09-06 00:00:00 HYDROCODONE-ACETAMINOPHEN All 2020-09-06 00:00:00 null [facility] [place] [facility] 2020-09-06 00:00:00 null [facility] [place] [facility] 2020-09-06 00:00:00 null [facility] [place] [facility] 2020-09-06 00:00:00 null [facility] [place] [facility] 2020-09-06 00:00:00 null [facility] [place] [facility] 2020-09-06 00:00:00 null [facility] [place] [facility] 2020-09-06 00:00:00 null [facility] [place] [facility] 2020-09-06 00:00:00 null [facility] [place] [facility] 2020-09-06 00:00:00 PREDNISONE [facility] [place] [facility] 2020-09-06 00:00:00 AZITHROMYCIN [facility] [place] [facility] 2020-09-06 00:00:00 HYDROCODONE-ACETAMINOPHEN [facility] [place] [facility] 2020-09-06 00:00:00 COT-EIPI-HRQHCA-MGHYDR-SIMETH [facility] [place] [facility] 2020-09-06 00:00:00 PREDNISONE [facility] [place] [facility] 2020-09-06 00:00:00 AZITHROMYCIN [facility] [place] [facility] 2020-09-06 00:00:00 HYDROCODONE-ACETAMINOPHEN [facility] [place] [facility] 2020-09-15 00:00:00 null All 2020-09-15 00:00:00 null All 2020-09-15 00:00:00 null All 2020-09-15 00:00:00 null All 2020-09-15 00:00:00 METHYLPREDNISOLONE All 2020-09-15 00:00:00 METHOCARBAMOL All 2020-09-15 00:00:00 METHOCARBAMOL All 2020-09-15 00:00:00 METHYLPREDNISOLONE All 2020-09-15 00:00:00 null [facility] [place] [facility] 2020-09-15 00:00:00 null [facility] [place] [facility] 2020-09-15 00:00:00 null [facility] [place] [facility] 2020-09-15 00:00:00 null [facility] [place] [facility] 2020-09-15 00:00:00 METHYLPREDNISOLONE [facility] [place] [facility] 2020-09-15 00:00:00 METHOCARBAMOL [facility] [place] [facility] 2020-09-15 00:00:00 METHOCARBAMOL [facility] [place] [facility] 2020-09-15 00:00:00 METHYLPREDNISOLONE [facility] [place] [facility] 2020-09-26 00:00:00 null [facility] [place] [facility] 2020-09-26 00:00:00 null [facility] [place] [facility] 2020-09-26 00:00:00 PREDNISONE [facility] [place] [facility] 2020-09-26 00:00:00 PREDNISONE [facility] [place] [facility] 2020-10-08 00:00:00 null [facility] [place] [facility] 2020-10-08 00:00:00 null [facility] [place] [facility] 2020-10-08 00:00:00 null [facility] [place] [facility] 2020-10-08 00:00:00 null [facility] [place] [facility] 2020-10-08 00:00:00 PREDNISONE [facility] [place] [facility] 2020-10-08 00:00:00 METHOCARBAMOL [facility] [place] [facility] 2020-10-08 00:00:00 METHOCARBAMOL [facility] [place] [facility] 2020-10-08 00:00:00 PREDNISONE [facility] [place] [facility] Results Social History date description facility 2020-09-06 00:00:00 Former smoker All date description facility 2020-09-15 00:00:00 [facility] [place] [facility] Social History date description facility 2020-09-06 00:00:00 Former smoker All date description facility 2020-09-15 00:00:00 [facility] [place] [facility] date description facility [id number]
[2020-11-09 09:59] VITALS: BP 185/92
== END 2020-11-09 09:59 | disposition home or self-care (01) ==
LOC: EDUNIT# → ED 07:45
DX: J44.1 Chronic obstructive pulmonary disease with (acute) exacerbation (principal); Z99.81 Dependence on supplemental oxygen; I10 Essential (primary) hypertension
CPT/HCPCS: 36415; 80048; 82803; 85025; 94640; 99284

== ENCOUNTER 2021-01-19 12:45 | Outpatient (CLI) | payer MEDICARE, OTHER ==
--- NOTE | 2021-01-19 17:19 | Ultrasound Report ---
PROCEDURE: Duplex Lwr Ext Arterial Bilat INDICATIONS: PERIPHERAL ARTERY DISEASE TECHNIQUE: Color and pulse Doppler interrogation was performed of both lower extremity arterial systems, with im age documentation. COMPARISON: None FINDINGS: Right lower extremity: Common femoral artery: 17 cm/sec, with monophasic flow. Deep femoral artery: 32 cm/sec, with monophasic flow. Proximal superficial femoral artery: 22 cm/sec, with monophasic flow. Mid superficial femoral artery: 13 cm/sec, with monophasic flow. Distal superficial femoral artery: 27 cm/sec, with monophasic flow. Popliteal artery: 15 cm/sec, with monophasic flow. Posterior tibial artery: 10 cm/sec, with monophasic flow. Anterior tibial artery/dorsalis pedis: 16/13 cm/sec, with monophasic flow. Wade-scale imaging description: Monophasic waveform with parvus tardus in the right common femoral i s consistent with hemodynamically significant inflow stenosis or occlusion. Extensive calcified plaqu e. Extensive SFA stenotic disease. All waveforms monophasic. Left lower extremity: Common femoral artery: 50 cm/sec, with monophasic flow. Deep femoral artery: Occluded proximally cm/sec, with monophasic flow. Proximal superficial femoral artery: 38 cm/sec, with monophasic flow. Mid superficial femoral artery: 33 cm/sec, with monophasic flow. Distal superficial femoral artery: 27 cm/sec, with monophasic flow. Popliteal artery: 33 cm/sec, with monophasic flow. Posterior tibial artery: 26 cm/sec, with monophasic flow. Anterior tibial artery/dorsalis pedis: 16/16 cm/sec, with monophasic flow. Wade-scale imaging description: Distal left iliac artery has monophasic waveforms and parvus tardus shape consistent with more proximal hemodynamically significant stenosis or occlusion. There is appar ent occlusion of the origin of the profunda. There is diffuse SFA disease. There is extensive plaque with the focal stenoses in the SFA. All waveforms are monophasic. IMPRESSION: 1. Both common femorals and the left external iliac are evaluated and have monophasic waveform with p arvus tardus shape of wave, consistent with significant aortobiiliac stenotic disease or occlusive di sease. 2. Right lower extremity runoff significant for extensive SFA disease, extensive plaque, and monophas ic waveforms throughout. 3. Left lower extremity runoff significant for probable origin occlusion of the profunda, extensive S FA stenotic disease, and monophasic waveforms throughout. Reviewed by: Vahe Recinos MD on 01/19/2021 5:18 PM PDT Approved by: Vahe Recinos MD on 01/19/2021 5:18 PM PDT Station ID: [id number]
== END 2021-01-19 12:46 | disposition home or self-care (01) ==
LOC: DI 12:45
PROVIDERS: ATTEND Family Medicine
DX: I70.202 Unspecified atherosclerosis of native arteries of extremities, left leg (principal); I70.201 Unspecified atherosclerosis of native arteries of extremities, right leg
CPT/HCPCS: 93925

== ENCOUNTER 2021-03-22 05:57 | Outpatient (CLI) | payer MEDICARE, OTHER | END 2021-03-22 05:58 | disposition EMS.NT | LOC: EMS 05:57 | DX: R06.00 Dyspnea, unspecified (principal) ==

== ENCOUNTER 2021-06-20 13:00 | Outpatient (CLI) | payer MEDICARE, OTHER ==
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
== END 2021-06-20 13:01 | disposition home or self-care (01) ==
LOC: PC 13:00
PROVIDERS: ATTEND Nurse Practitioner Adult Health
DX: Z51.5 Encounter for palliative care (principal); J44.9 Chronic obstructive pulmonary disease, unspecified; I70.239 Atherosclerosis of native arteries of right leg with ulceration of unspecified site; L97.919 Non-pressure chronic ulcer of unspecified part of right lower leg with unspecified severity; M79.604 Pain in right leg; I10 Essential (primary) hypertension; R53.1 Weakness; Z79.899 Other long term (current) drug therapy; Z87.891 Personal history of nicotine dependence; Z74.09 Other reduced mobility; Z74.1 Need for assistance with personal care

== ENCOUNTER 2021-11-13 08:00 | Outpatient (CLI) | payer MEDICARE, OTHER | END 2021-11-13 23:59 | LOC: LAB 08:00 | PROVIDERS: ATTEND Emergency Medicine | DX: L97.519 Non-pressure chronic ulcer of other part of right foot with unspecified severity (principal) | CPT/HCPCS: 87070; 87205 ==